=== PATIENT | female | born 1985 | race Caucasian/White ===

== ENCOUNTER 2019-12-31 07:40 | Inpatient (IN) ==
[2019-12-31] MEDS ORDERED: OXYTOCIN 30 UNITS/500 ML BAG IV PRN ×2 (07:47)
[2019-12-31] MEDS ORDERED: PENICILLIN G POTASSIUM 6 MU in DEXTROSE 5% 250 ML IV ONE (08:00)
[2019-12-31 08:21] LABS: Hemoglobin 12.1 g/dL (12.0-16.0); Mean Corpuscular Hemoglobin 27.4 pg (25-34); Mean Corpuscular Volume 81.4 fL (80-100); Mean Platelet Volume 11.4 fL (7.4-10.4); Platelet Count 172 K/uL (130-400); RDW Coefficient of Variation 14.3 % (11.5-14.5); RDW Standard Deviation 42.5 fL (36.4-46.3); Red Blood Count 4.42 M/uL (4.2-5.4); White Blood Count 11.84 K/uL (4.8-10.8)
[2019-12-31 08:40] LABS: Mean Corpuscular Hgb Conc 33.6 g/dL (32-36)
--- NOTE | 2019-12-31 08:56 | History & Physical Report ---
Date of Service December 31, 2019 40 weeks gestational age here for induction is gestational diabetic on insulin first baby uncomplicated aside from the gestational diabetes Assessment & Plan (1) Insulin controlled gestational diabetes mellitus (GDM) during : Induction at 40 weeks gestational age cervix is 1 to 2 cm 90% effaced start Pitocin blood sugars every 1 hour COVID negative Admission and Anticipated Discharge Date Admission Date: December 31, 2019 History of Present Illness Primary Care Provider: Jody Cheung MD Allergies Allergy/AdvReac Type Severity Reaction Status Date / Time No Known Drug Allergies Allergy none Verified 12/31/19 07:57 Home Medications Home Medications Medication Instructions Recorded Confirmed Type prenat.vits,richard,pdv-[id number] 1 tab PO DAILY 04/08/19 12/31/19 History acetone (urine) test #50 ea 10/18/19 12/30/19 Rx blood sugar diagnostic #150 ea 10/18/19 12/30/19 Rx blood-glucose meter #1 ea 10/18/19 12/30/19 Rx lancets 33 gauge #150 ea 10/18/19 12/30/19 Rx insulin NPH isoph U-100 human 100 8 units SQ QPM #72 ml 11/29/19 12/31/19 Rx unit/mL subcutaneous suspension insulin syringe-needle U-100 0.5 #90 ea 11/29/19 12/30/19 Rx mL 31 gauge x 5/16" breast pump #1 ea 12/04/19 12/30/19 Rx Patient History Social History (Updated 06/12/19 @ 13:11 by Janiya Nelson) Smoking Status: Never smoker Second Hand Exposure: No; Hx Alcohol Use: No Hx Substance Use: No Preferred Language: Syriac Communication Ability: Effective 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 Beliefs That Will Affect Care: None marital status: marital status details: Sahil Hernandez (27) [phone] Current Living Situation: Spouse Current Living Situation Comment: lives with spouse, 2 dogs current occupational status: employed 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 Other Information That Helps Us Care for You: No Feels Safe at Home: Yes Safety Concerns: Feels Safe At This Time Physical Exam Constitutional: WD/WN, vitals as above Respiratory: normal respiratory effort, lungs clear to auscultation Cardiovascular: RRR, no murmur, no edema Genitourinary: Manual OB Exam: + cervical dilation 2 cm, + cervical effacement 90% and + station -1 Results & Data ([facility]) Vital Signs (Past 12 Hours) Vital Signs Temp Pulse Resp BP 12/31/19 07:50 81 123/86 12/31/19 07:49 98.2 F 16 Coding Level of Care Code None Diagnoses Insulin controlled gestational diabetes mellitus (GDM) during O24.414
--- NOTE | 2019-12-31 08:57 | History & Physical Report ---
Date of Service December 31, 2019 Assessment & Plan (1) Elective induction of labor planned: Nia is a 34 y/o female at 39-7/7 WGA and an NICA 12/31/19 by LMP here for IOL in setting of insulin-dependent GDM throughout this . She is GBS+. - Continue with IOL with Pitocin protocol - GBS+ - will give intrapartum PCN - Insulin-dependent GDM: Glucose checks every hour (2) GBS (group B Streptococcus carrier), +RV culture, currently : As above Present on Admission?: Yes (3) Insulin controlled gestational diabetes mellitus (GDM) during : As above Present on Admission?: Yes History of Present Illness Primary Care Provider: Jody Cheung MD Nia is a 34 y/o female at 39-7/7 WGA and an NICA 12/31/19 by LMP here for IOL in setting of insulin-dependent GDM throughout this . She is GBS+. No other complications throughout . No contractions; good movement; no fluid loss; no bloody show External FHT and external uterine monitors used; Category I tracing; +FHT variability. Had regular appointments with OB. Labs: (06/19/2019) Blood type: O+ Antibody screen: neg H.1 (today) Hct: 36.0 (today) WBC: 11.84 (today) Plt: 172 (today) Rubella: NR VDRL/RPR: NR Gonorrhea: neg Chlamydia: neg HIV: neg GBS: Positive Allergies Allergy/AdvReac Type Severity Reaction Status Date / Time No Known Drug Allergies Allergy none Verified 12/31/19 07:57 Home Medications Home Medications Medication Instructions Recorded Confirmed Type prenat.vits,richard,[id number] 1 tab PO DAILY 04/08/19 12/31/19 History acetone (urine) test #50 ea 10/18/19 12/30/19 Rx blood sugar diagnostic #150 10/18/19 12/30/19 Rx blood-glucose meter #1 10/18/19 12/30/19 Rx lancets 33 gauge #150 ea 10/18/19 12/30/19 Rx insulin NPH isoph U-100 human 100 8 units SQ QPM #72 ml 11/29/19 12/31/19 Rx unit/mL subcutaneous suspension insulin syringe-needle U-100 0.5 #90 ea 11/29/19 12/30/19 Rx mL 31 gauge x 5/16" breast pump #1 ea 12/04/19 12/30/19 Rx Patient History Social History (Updated 06/12/19 @ 13:11 by Janiya Nelson) Smoking Status: Never smoker Second Hand Exposure: No; Hx Alcohol Use: No Hx Substance Use: No Preferred Language: [place] Communication Ability: Effective 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 Beliefs That Will Affect Care: None marital status: marital status details: Sahil Hernandez (27) [phone] Current Living Situation: Spouse Current Living Situation Comment: lives with spouse, 2 dogs current occupational status: employed 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 No acute distress. Cardiac: Regular rate and rhythm, no murmurs/rubs/gallops. Respiratory: Clear to auscultation bilaterally a/p, no wheezes/rales/rhonchi. No increased work of breathing. Symmetrical chest rise. No respiratory distress. Abdomen: Gravid uterus, nontender to palpation Pelvic: Dilation 2cm; Effacement 90%; Station -[address] Smith Lower Extremities: No lower extremity edema or swelling. No deep calf pain. Sanya's negative bilaterally Results & Data Vital Signs (Past 12 Hours) Vital Signs Temp Pulse Resp BP 12/31/19 07:50 81 123/86 12/31/19 07:49 36.8 C 16 Resident Activity Tracking Resident Involvement: Resident Care Provided Care Provided: OB Delivery
[2019-12-31] MEDS: LACTATED RINGER'S 1,000 ML IV PRN ×3 (08:59→18:39)
--- NOTE | 2019-12-31 12:28 | Labor Progress Brief Note ---
Date of Service December 31, 2019 AROM for clear fluid. Cat 1 Assessment & Plan Admission and Anticipated Discharge Date Admission Date: December 31, 2019 Results & Data ([facility]) Vital Signs (Past 12 Hours) Vital Signs Temp Pulse Resp BP 12/31/19 12:20 98.4 F 12/31/19 12:03 75 126/88 12/31/19 11:02 78 132/96 12/31/19 11:01 98.2 F 12/31/19 10:03 69 124/89 12/31/19 10:02 71 124/88 12/31/19 09:02 80 133/92 12/31/19 07:50 81 123/86 12/31/19 07:49 98.2 F 16 Coding Level of Care Code None
[2019-12-31] MEDS: PENICILLIN G POTASSIUM 3 MU in DEXTROSE 5% 100 ML IV PRN ×3 (12:59→21:03)
[2019-12-31] MEDS ORDERED: fentaNYL citrate 100 MCG/2 ML VIAL ONE (14:08)
[2019-12-31] MEDS ORDERED: ePHEDrine sulfate 50 MG/ML AMP ONE (14:08)
[2019-12-31] MEDS ORDERED: BUPIVACAINE 0.25% 30 ML VIAL ONE (14:08)
--- NOTE | 2019-12-31 14:08 | Anesthesiology Consultation ---
Date of Service December 31, 2019 Assessment & Plan (1) Encounter for pre-operative examination: Chart Review Chart Review: Acceptable Risk for Surgery and Patient NOT seen in Pre Admission Testing Consults Requested none ASA ASA3 Proposed Anesthesia Anesthesia Type: Labor Epidural Risk / Benefits Reviewed With: PT / POA / Parent / Guardian, Accepts Plan and Informed Consent Obtained History Height/Weight Height: 5 ft 7 in Weight: 86.183 kg Allergies Allergy/AdvReac Type Severity Reaction Status Date / Time No Known Drug Allergies Allergy none Verified 12/31/19 07:57 Medications Home Medications Medication Instructions Recorded Confirmed Last Taken prenat.vits,richard,ier-htbx-oiygi 1 tab PO DAILY 04/08/19 12/31/19 12/31/19 06:00 acetone (urine) test #50 ea 10/18/19 12/30/19 Unknown blood sugar diagnostic #150 ea 10/18/19 12/30/19 Unknown blood-glucose meter #1 ea 10/18/19 12/30/19 Unknown lancets 33 gauge #150 ea 10/18/19 12/30/19 Unknown insulin NPH isoph U-100 human 100 8 units SQ QPM #72 ml 11/29/19 12/31/19 21:00 unit/mL subcutaneous suspension insulin syringe-needle U-100 0.5 #90 ea 11/29/19 12/30/19 Unknown mL 31 gauge x 5/16" breast pump #1 12/04/19 12/30/19 Unknown Active Medications Generic Name Dose Route Start Last Admin Trade Name Freq PRN Reason Stop Dose Admin Lactated Ringer's 1,000 mls @ 125 mls/hr 12/31/19 07:47 12/31/19 08:59 Lr IV 01/02/20 07:46 125 mls/hr .Q8H PRN Administration L&D Protocol Protocol Penicillin G Potassium 3 mu/ 106 mls @ 100 mls/hr 12/31/19 07:47 12/31/19 12:59 Dextrose IV 01/10/20 07:46 100 mls/hr Q4H PRN Administration Give until delivery Oxytocin 30 units in 500 mls @ 11 mls/hr 12/31/19 07:47 12/31/19 12:06 Pitocin IV 01/02/20 07:46 0.66 units/hr .Q24H PRN 11 mls/hr Labor Induction/Augmentation Titration Protocol 0.66 UNITS/HR NPO Date Last Intake of Fluids: 12/31/19 Time Last Intake of Fluids: 14:00 Date Last Intake of Solids: 12/31/19 Time Last Intake of Solids: 05:45 Past Medical History Medical History Chronic sinusitis with recurrent bronchitis GERD (gastroesophageal reflux disease) Hx of varicella as a child Hyperlipidemia no meds Hypertrophy of both inferior nasal turbinates (Resolved) Umbilical hernia history of Exercise / Class Metabolic Activity II 4-5 Yardwork/Stairs/Walk up hill Past Family History Family History Grandfather (Paternal) FHx: deafness or hearing loss Stroke Hypertension Father Family history of diabetes mellitus Hypertension Crohn's disease Uncle Family history of diabetes mellitus Mother Hypertension Fibroids Grandfather (Maternal) Lung cancer Hypertension Grandmother (Maternal) Hypertension Grandmother (Paternal) Breast cancer Hypertension Past Surgical History Surgical History History of endoscopic sinus surgery History of tooth extraction wisdom teeth removed Past Anesthesia History No Hx of Anesthesia Complications History of PONV No Hx of PONV Social History Smoking Status: Never smoker Hx Alcohol Use: No Alcohol type: beer, wine and hard liquor alcohol intake frequency: a few times a week Hx Substance Use: No substance use type: does not use Review of Systems Negative for chest pain or shortness of breath. Patient denies history of abnormal bleeding or bleeding disorder. Patient denies active use of anticoagulants other than low dose aspirin. Patient denies numbness, tingling or weakness in lower extremities. Physical Exam Vital Signs Last Vital Signs Temp 36.9 C 12/31/19 13:03 Pulse 74 12/31/19 13:04 Resp 16 12/31/19 07:49 BP 133/95 12/31/19 13:04 Constitutional not obese (Gravid uterus) ENMT Mouth: no TMJ abnormality and oral opening not small Thyromental Distance: > or= 3.5 Finger Breadths Mallampati Class: II Neck normal visual inspection; neck extension not limited Respiratory normal respiratory effort, lungs clear to auscultation normal respiratory effort Auscultation: lungs clear to auscultation bilaterally Cardiovascular Rate/Rhythm: regular rate and regular rhythm Heart Sounds: no murmur Neurologic moves all extremities Motor/Sensory: no sensory deficit Psychiatric Orientation: alert and oriented x 3 Testing Laboratory Results 12/31/19 08:10 12/31/19 12/31/19 12/31/19 13:02 12:04 11:02 POC Glucose 75 111 H 73 12/31/19 12/31/19 10:04 09:05 POC Glucose 104 H 76
[2019-12-31] MEDS ORDERED: fentaNYL 2MCG/ML ROPIV 1.25MG/ML 100 ML BAG EPI ONE ×2 (14:09→20:52)
--- NOTE | 2019-12-31 20:16 | Labor Progress Brief Note ---
Date of Service December 31, 2019 She has now been pushing for 2 hours she has an epidural patient is making good progress up to +2 station she will continue to push bladder will be drained we did discuss the option of vacuum if maternal fatigue starts to become an issue patient seems to understand Assessment & Plan Admission and Anticipated Discharge Date Admission Date: December 31, 2019 Results & Data ([facility]) Vital Signs (Past 12 Hours) Vital Signs Temp Pulse Resp BP Pulse Ox 12/31/19 20:14 79 122/74 100 12/31/19 20:09 74 99 12/31/19 20:04 80 99 12/31/19 20:00 75 18 122/62 12/31/19 19:59 83 100 12/31/19 19:56 80 90 12/31/19 19:54 74 99 12/31/19 19:50 101 H 93 12/31/19 19:49 83 98 12/31/19 19:45 77 80 L 12/31/19 19:44 74 120/72 98 12/31/19 19:39 90 95 12/31/19 19:34 109 H 99 12/31/19 19:33 78 91 12/31/19 19:31 78 123/69 12/31/19 19:29 68 99 12/31/19 19:26 91 H 91 12/31/19 19:24 80 100 12/31/19 19:19 71 100 12/31/19 19:14 72 100 12/31/19 19:11 72 91 12/31/19 19:10 97.5 F L 18 12/31/19 19:09 69 100 12/31/19 19:04 65 100 12/31/19 19:03 90 90 12/31/19 19:00 20 12/31/19 18:59 68 132/63 100 12/31/19 18:56 69 92 12/31/19 18:54 94 H 95 12/31/19 18:49 88 97 12/31/19 18:47 75 91 12/31/19 18:44 89 99 12/31/19 18:42 81 92 12/31/19 18:39 74 100 12/31/19 18:34 67 100 12/31/19 18:30 88 20 113/68 12/31/19 18:29 98 H 100 12/31/19 18:24 84 100 12/31/19 18:23 88 132/63 12/31/19 18:21 67 126/89 12/31/19 18:19 80 100 12/31/19 18:15 76 149/74 H 12/31/19 18:14 70 100 12/31/19 18:10 68 141/60 H 12/31/19 18:09 68 100 12/31/19 18:06 81 87 L 12/31/19 18:04 68 117/70 100 12/31/19 18:00 18 12/31/19 17:59 63 100 12/31/19 17:58 65 120/72 12/31/19 17:54 66 100 12/31/19 17:52 62 126/74 12/31/19 17:49 63 119/72 100 12/31/19 17:44 64 100 12/31/19 17:43 65 116/70 12/31/19 17:39 63 100 12/31/19 17:37 63 116/69 12/31/19 17:34 65 118/70 100 12/31/19 17:32 68 91 12/31/19 17:30 18 12/31/19 17:29 62 100 12/31/19 17:27 66 117/71 12/31/19 17:24 65 100 12/31/19 17:23 63 114/70 12/31/19 17:19 68 100 12/31/19 17:18 63 109/65 12/31/19 17:14 72 100 12/31/19 17:13 67 113/64 12/31/19 17:09 66 109/59 L 100 12/31/19 17:04 61 100 12/31/19 17:03 58 L 104/58 L 12/31/19 17:00 98.2 F 20 12/31/19 16:59 67 98 12/31/19 16:55 75 175/67 H 12/31/19 16:54 82 85 L 12/31/19 16:49 69 99 12/31/19 16:48 68 128/74 12/31/19 16:47 84 90 12/31/19 16:45 66 20 120/76 12/31/19 16:44 67 100 12/31/19 16:39 67 100 12/31/19 16:37 71 124/66 12/31/19 16:34 66 100 07/28/20 16:33 79 114/74 12/31/19 16:30 18 12/31/19 16:29 70 100 12/31/19 16:28 69 116/73 12/31/19 16:24 65 118/70 100 12/31/19 16:19 65 100 12/31/19 16:18 64 110/66 12/31/19 16:14 66 100 12/31/19 16:13 65 112/66 12/31/19 16:09 76 109/63 100 12/31/19 16:04 66 112/68 100 12/31/19 16:00 16 12/31/19 15:59 67 100 12/31/19 15:58 64 115/65 12/31/19 15:54 67 100 12/31/19 15:53 65 112/67 12/31/19 15:49 75 114/69 100 12/31/19 15:45 18 12/31/19 15:44 69 100 12/31/19 15:43 69 125/79 12/31/19 15:39 65 100 12/31/19 15:38 63 112/73 12/31/19 15:34 63 100 12/31/19 15:32 67 118/72 12/31/19 15:30 16 12/31/19 15:29 72 120/70 100 12/31/19 15:24 63 100 12/31/19 15:23 66 119/71 12/31/19 15:19 69 100 12/31/19 15:17 66 113/74 12/31/19 15:15 62 18 117/72 12/31/19 15:14 67 99 12/31/19 15:13 68 117/75 12/31/19 15:11 65 122/78 12/31/19 15:09 66 121/78 100 12/31/19 15:07 68 126/81 12/31/19 15:05 80 120/75 12/31/19 15:04 70 100 12/31/19 15:03 63 120/76 12/31/19 15:01 66 118/73 12/31/19 15:00 16 12/31/19 14:59 68 124/78 100 12/31/19 14:57 72 117/76 12/31/19 14:56 98.1 F 12/31/19 14:55 69 118/75 12/31/19 14:54 72 100 12/31/19 14:53 70 126/77 12/31/19 14:51 71 121/74 12/31/19 14:50 16 12/31/19 14:49 76 121/76 100 12/31/19 14:47 73 119/73 12/31/19 14:45 71 121/77 12/31/19 14:44 77 100 12/31/19 14:38 85 100 12/31/19 14:33 82 99 12/31/19 14:28 85 99 12/31/19 14:23 75 100 12/31/19 14:18 72 99 12/31/19 14:03 73 136/94 12/31/19 13:04 74 133/95 12/31/19 13:03 98.4 F 12/31/19 12:20 98.4 F 12/31/19 12:03 75 126/88 12/31/19 11:02 78 132/96 12/31/19 11:01 98.2 F 12/31/19 10:03 69 124/89 12/31/19 10:02 71 124/88 12/31/19 09:02 80 133/92 Coding Level of Care Code None
[2019-12-31] MEDS ORDERED: ONDANSETRON INJ 2 MG/ML 2 ML VIAL IV PRN ×2 (20:54→23:44)
[2019-12-31] MEDS ORDERED: ePHEDrine sulfate 50 MG/ML AMP IV PRN ×2 (20:54→23:44)
[2019-12-31] MEDS ORDERED: NALOXONE HCL 1 MG in SODIUM CHLORIDE 0.9% 1000ML 1,000 ML IV PRN ×2 (20:54→23:44)
[2019-12-31] MEDS ORDERED: DiphenhydrAMINE HCL 50 MG/ML VIAL IV PRN ×2 (20:54→23:44)
[2019-12-31] MEDS ORDERED: fentaNYL 2MCG/ML ROPIV 1.25MG/ML 100 ML BAG EPI PRN (20:54)
[2019-12-31] MEDS ORDERED: NALOXONE HCL 0.4 MG/1 ML VIAL/CARP IV PRN ×2 (20:54→23:44)
[2019-12-31] MEDS ORDERED: LACTATED RINGER'S 1,000 ML IV SCH (21:15)
--- NOTE | 2019-12-31 21:18 | Labor Progress Brief Note ---
Date of Service December 31, 2019 Patient had pushed for 3 hours and was starting to get to the maternal exhaustion I offered the vacuum and she agreed. Station was at +2 however she was making minimal crawl progress pushing. Discussed risks of the vacuum including O hematoma. Bladder was drained with a straight catheter rubber Betadine applied vacuum was applied for 3 contractions and 3 pop offs I was unable to get the baby to descend any further despite excellent pushing strong contractions and my best effort after this I stopped with the vacuum and expres sed my recommendation for section patient agrees discussed risks of section. The patient was counseled to the nature of the procedure including alternatives such as labor. Risks were discussed including bleeding infection injury to bowel bladder ureter vessels and even baby. Deep Vein thrombosis, pulmonary embolus discussed. Breakdown of incision reviewed. Deep vein thrombosis pulmonary embolus hernia and failure of the incision to heal were discussed Patient verbalized understanding of this and was given ample time to ask questions Discussed increased risks of infection with prolonged labor Assessment & Plan Admission and Anticipated Discharge Date Admission Date: December 31, 2019 Results & Data ([facility]) Vital Signs (Past 12 Hours) Vital Signs Temp Pulse Resp BP Pulse Ox 12/31/19 21:15 86 149/65 H 12/31/19 21:14 93 H 99 12/31/19 21:09 114 H 97 12/31/19 21:07 119 H 90 12/31/19 21:04 82 98 12/31/19 20:59 107 H 97 12/31/19 20:58 83 129/71 12/31/19 20:54 83 99 12/31/19 20:49 98 H 99 12/31/19 20:45 18 12/31/19 20:44 83 122/69 98 12/31/19 20:39 82 99 12/31/19 20:34 96 H 99 12/31/19 20:30 73 18 119/63 12/31/19 20:29 83 119/59 L 99 12/31/19 20:24 85 99 12/31/19 20:19 92 H 100 12/31/19 20:15 18 12/31/19 20:14 79 122/74 100 12/31/19 20:09 74 99 12/31/19 20:04 80 99 12/31/19 20:00 75 18 122/62 12/31/19 19:59 83 100 12/31/19 19:56 80 90 12/31/19 19:54 74 99 12/31/19 19:50 101 H 93 12/31/19 19:49 83 98 12/31/19 19:45 77 80 L 12/31/19 19:44 74 120/72 98 12/31/19 19:39 90 95 12/31/19 19:34 109 H 99 12/31/19 19:33 78 91 12/31/19 19:31 78 123/69 12/31/19 19:30 20 12/31/19 19:29 68 99 12/31/19 19:26 91 H 91 12/31/19 19:24 80 100 12/31/19 19:19 71 100 12/31/19 19:14 72 100 12/31/19 19:11 72 91 12/31/19 19:10 97.5 F L 18 12/31/19 19:09 69 100 12/31/19 19:04 65 100 12/31/19 19:03 90 90 12/31/19 19:00 20 12/31/19 18:59 68 132/63 100 12/31/19 18:56 69 92 12/31/19 18:54 94 H 95 12/31/19 18:49 88 97 12/31/19 18:47 75 91 12/31/19 18:44 89 99 12/31/19 18:42 81 92 12/31/19 18:39 74 100 12/31/19 18:34 67 100 12/31/19 18:30 88 20 113/68 12/31/19 18:29 98 H 100 12/31/19 18:24 84 100 12/31/19 18:23 88 132/63 12/31/19 18:21 67 126/89 12/31/19 18:19 80 100 12/31/19 18:15 76 149/74 H 12/31/19 18:14 70 100 12/31/19 18:10 68 141/60 H 12/31/19 18:09 68 100 12/31/19 18:06 81 87 L 12/31/19 18:04 68 117/70 100 12/31/19 18:00 18 12/31/19 17:59 63 100 12/31/19 17:58 65 120/72 12/31/19 17:54 66 100 12/31/19 17:52 62 126/74 12/31/19 17:49 63 119/72 100 12/31/19 17:44 64 100 12/31/19 17:43 65 116/70 12/31/19 17:39 63 100 12/31/19 17:37 63 116/69 12/31/19 17:34 65 118/70 100 12/31/19 17:32 68 91 12/31/19 17:30 18 12/31/19 17:29 62 100 12/31/19 17:27 66 117/71 12/31/19 17:24 65 100 12/31/19 17:23 63 114/70 12/31/19 17:19 68 100 12/31/19 17:18 63 109/65 12/31/19 17:14 72 100 12/31/19 17:13 67 113/64 12/31/19 17:09 66 109/59 L 100 12/31/19 17:04 61 100 12/31/19 17:03 58 L 104/58 L 12/31/19 17:00 98.2 F 20 12/31/19 16:59 67 98 12/31/19 16:55 75 175/67 H 12/31/19 16:54 82 85 L 12/31/19 16:49 69 99 12/31/19 16:48 68 128/74 12/31/19 16:47 84 90 12/31/19 16:45 66 20 120/76 12/31/19 16:44 67 100 12/31/19 16:39 67 100 12/31/19 16:37 71 124/66 12/31/19 16:34 66 100 12/31/19 16:33 79 114/74 12/31/19 16:30 18 12/31/19 16:29 70 100 12/31/19 16:28 69 116/73 12/31/19 16:24 65 118/70 100 12/31/19 16:19 65 100 12/31/19 16:18 64 110/66 12/31/19 16:14 66 100 12/31/19 16:13 65 112/66 12/31/19 16:09 76 109/63 100 12/31/19 16:04 66 112/68 100 12/31/19 16:00 16 12/31/19 15:59 67 100 12/31/19 15:58 64 115/65 12/31/19 15:54 67 100 12/31/19 15:53 65 112/67 12/31/19 15:49 75 114/69 100 12/31/19 15:45 18 12/31/19 15:44 69 100 12/31/19 15:43 69 125/79 12/31/19 15:39 65 100 12/31/19 15:38 63 112/73 12/31/19 15:34 63 100 12/31/19 15:32 67 118/72 12/31/19 15:30 16 12/31/19 15:29 72 120/70 100 12/31/19 15:24 63 100 12/31/19 15:23 66 119/71 12/31/19 15:19 69 100 12/31/19 15:17 66 113/74 12/31/19 15:15 62 18 117/72 12/31/19 15:14 67 99 12/31/19 15:13 68 117/75 12/31/19 15:11 65 122/78 12/31/19 15:09 66 121/78 100 12/31/19 15:07 68 126/81 12/31/19 15:05 80 120/75 12/31/19 15:04 70 100 12/31/19 15:03 63 120/76 12/31/19 15:01 66 118/73 12/31/19 15:00 16 12/31/19 14:59 68 124/78 100 12/31/19 14:57 72 117/76 12/31/19 14:56 98.1 F 12/31/19 14:55 69 118/75 12/31/19 14:54 72 100 12/31/19 14:53 70 126/77 12/31/19 14:51 71 121/74 12/31/19 14:50 16 12/31/19 14:49 76 121/76 100 12/31/19 14:47 73 119/73 12/31/19 14:45 71 121/77 12/31/19 14:44 77 100 12/31/19 14:38 85 100 12/31/19 14:33 82 99 12/31/19 14:28 85 99 12/31/19 14:23 75 100 12/31/19 14:18 72 99 12/31/19 14:03 73 136/94 12/31/19 13:04 74 133/95 12/31/19 13:03 98.4 F 12/31/19 12:20 98.4 F 12/31/19 12:03 75 126/88 12/31/19 11:02 78 132/96 12/31/19 11:01 98.2 F 12/31/19 10:03 69 124/89 12/31/19 10:02 71 124/88 Coding Level of Care Code None
[2019-12-31] MEDS ORDERED: CITRIC ACID/SODIUM CITRATE 15 ML UDC ONE (21:21)
[2019-12-31] MEDS ORDERED: LIDOCAINE/EPINEPHRINE 2% 1:200,000 20 ML SDV ONE (21:22)
[2019-12-31] MEDS ORDERED: OXYTOCIN 10 UNITS/ML VIAL ONE (21:22)
[2019-12-31] MEDS ORDERED: CEFAZOLIN 2000MG 2,000 MG/15 ML SYR IV SCH (21:30)
[2019-12-31] MEDS ORDERED: CITRIC ACID/SODIUM CITRATE 15 ML UDC PO SCH (21:30)
[2019-12-31] MEDS ORDERED: PHENYLEPHRINE 100MCG/ML 5ML SYR ONE (22:00)
[2019-12-31] MEDS ORDERED: ONDANSETRON INJ 2 MG/ML 2 ML VIAL ONE (22:00)
[2019-12-31] MEDS ORDERED: MoRPHine SULFATE PF 1 MG/ML 10 ML AMP/VIAL ONE (22:08)
[2019-12-31] MEDS ORDERED: ePHEDrine sulfate 50 MG/ML SYR ONE (22:14)
[2019-12-31] MEDS ORDERED: PROMETHAZINE HCL INJ 25 MG/ML 1 ML VIAL ONE (22:21)
[2019-12-31] MEDS ORDERED: SODIUM CHLORIDE 0.9% INJ 10 ML VIAL ONE (22:21)
[2019-12-31 22:38] LABS: Base Excess Cord Venous Blood -2.4 mEq/L (-7.7-1.9); Cord Venous Blood HCO3 23 mmol/L (18.4-26.8); Cord Venous Blood PCO2 44 mmHg (30.4-57.2); Cord Venous Blood PO2 26 mmHg (14.1-43.3); Cord Venous Blood pH 7.34 (7.20-7.44)
[2019-12-31 22:40] LABS: Base Excess Cord Arterial Bld -2.7 mEq/L (-9-1.8); CO2 Cord Arterial Blood 53 mmHg (39.1-73.5); HCO3 Cord Arterial Blood 25 mmol/L (19.7-28.5); PO2 Cord Arterial Blood 28 mmHg (4.1-31.7); pH Cord Arterial Blood 7.28 (7.1-7.38)
[2019-12-31 22:41] LABS: O2 Saturation Cord Venous Bld < 60.0 % (<68); Oxygen Sat Cord Arterial Blood < 60.0 % (<60)
--- NOTE | 2019-12-31 22:50 | Operative Report ---
PG Post Operative Report Pre & Post Diagnosis Operation Date: 12/31/19 22:00 Pre-Op Diagnosis: Primary Section for failed trail of vacuum Post-Op Diagnosis: Same I identified the patient and participated in the time-out.: Yes Procedure Operation Date: 12/31/19 22:00 Actual Procedures p Section in LD for LFC at 2206 (Bilateral) - Alexandra Smith MD, FACOG Surgeon Alexandra Smith MD, FACOG Garment Cutter RN Estimated Blood Loss 700 Findings Consistent with Post-Op Diagnosis Specimens Cord gases and cord blood Description of Procedure Regional anesthetic was given by anesthesia patient had a Tomlin catheter inserted by nursing patient was prepped and draped in supine position with a leftward tilt preoperative antibiotics were given timeout performed Pickups with teeth were used to test the skin site and it was found adequate for incision scalpel used to make a Pfannenstiel incision cutting down through subcutaneous fat through the fascia fascia was then dissected laterally with the curved Garcia's fascia was released superiorly and inferiorly from the rectus muscles with the curved Garcia scissors, rectus muscle split peritoneal cavity entered in a superior location. Opening enlarged to allow exposure bladder retractor placed Metzenbaums used to dissect away the bladder flap low segment transverse incision made on the uterus with scalpel entry was done bluntly with the cylinder press operator helper's finger hysterotomy incision extended with the cylinder press operator helper's finger in the usual fashion baby was delivered then by flexion of the head and pressure from the training and development assistant on the abdomen. Note the baby's head was elevated gently from the pelvis and then delivered and then mouth and then nares were suctioned baby was then delivered fully without difficulty without excessive force live vigorous infant cord clamped and cut cord gases obtained cord blood obtained placenta removed manually within ensured all placenta removed with a moist lap sponge uterus exteriorized IV Pitocin had been started by anesthesia and uterine tone improved. The uterus was closed in 2 layers first layer and 0 Monocryl running locked second layer 0 Monocryl nonlocked after generous irrigation and suction of the cul-de-sac and bladder flap regions hemostasis was excellent uterus was placed back in the peritoneal cavity and hemostasis was excellent rectus muscles were inspected and found to be dry fascia closed with 0 Vicryl subcutaneous fat closed with 3-0 Vicryl prior to this subcutaneous fat was irrigated skin closed with 4-0 subcuticular Monocryl incision Steri-Stripped urine was clear at the end of the procedure There were no significant extensions and the adnexa were bilaterally normal I attest to the content of the Intraoperative Record and any orders documented therein. Any exceptions are noted below.
[2019-12-31] MEDS ORDERED: HYDROCORTISONE ACETATE 25 MG SUPP PR PRN (23:15)
[2019-12-31] MEDS ORDERED: SUPERCREAM 0.870% 15 GM JAR EXT PRN (23:15)
[2019-12-31] MEDS ORDERED: SENNA 8.6 MG TAB PO PRN (23:15)
[2019-12-31] MEDS ORDERED: MEPERIDINE HCL 50 MG/ML CARP IV PRN (23:15)
[2019-12-31] MEDS ORDERED: MAGNESIUM HYDROXIDE SUSP 30 ML UDC PO PRN (23:15)
[2019-12-31] MEDS ORDERED: BENZOCAINE 20% AER SPR 82.5 GM CAN EXT PRN (23:15)
[2019-12-31] MEDS ORDERED: DIPHTHERIA/TETANUS/PERTUSSIS 0.5 ML SYR/VIAL IM ONE (23:15)
[2019-12-31] MEDS: OXYTOCIN 20 UNITS in LACTATED RINGER'S 1,000 ML IV SCH (23:30)
[2019-12-31] MEDS ORDERED: ACETAMINOPHEN 1000 MG/100 ML IV IV PRN (23:43)
[2019-12-31] MEDS ORDERED: LACTATED RINGER'S 500 ML IV PRN (23:44)
[2019-12-31] MEDS ORDERED: HYDROmorphone INJ 0.5 MG/0.5 ML SYR IV PRN (23:44)
[2019-12-31] MEDS ORDERED: NALOXONE HCL 0.08 MG in SYRINGE 1.8 ML IV PRN (23:44)
[2019-12-31] MEDS ORDERED: KETOROLAC 30 MG/ML VIAL IV PRN (23:44)
[2019-12-31] MEDS ORDERED: PROMETHAZINE HCL 25 MG in SODIUM CHLORIDE 0.9% 50 ML IV PRN (23:44)
[2019-12-31] MEDS ORDERED: MoRPHine SULFATE PF 1 MG/ML 10 ML AMP/VIAL EPI ONE (23:44)
[2019-12-31] MEDS ORDERED: NO NARCOTICS OR SEDATIVES SCH (23:45)
[2019-12-31] MEDS ORDERED: SODIUM CHLORIDE 0.9% 1000ML 1,000 ML IV SCH (23:45)
[2019-12-31] MEDS ORDERED: DC INTRASPINAL MORPHINE SCH (23:45)
--- NOTE | 2019-12-31 23:50 | Anesthesia Procedure Note ---
Date of Service December 31, 2019 Anesthesia Post Epidural Note Vital Signs Vital Signs: Temp Pulse Resp BP Pulse Ox 37.9 C H 90 18 96/53 L 98 12/31/19 21:18 12/31/19 23:47 12/31/19 21:39 12/31/19 23:41 12/31/19 23:47 Pain Intensity Bilateral Abdomen: Pain Intensity: 2 Notes Mental Status: alert / awake / arousable and participated in evaluation Nausea / Vomiting: adequately controlled Pain: adequately controlled Airway Patency, RR, SpO2: stable & adequate BP & HR: stable & adequate Hydration State: stable & adequate Neuraxial Anesthesia: was administered and sensory block is resolving Anesthetic Complications: no major complications apparent and Pt Satisfied with anesthetic care Epidural: Removed without complications and With tip intact Notes: Epidural site clean, dry and intact. No signs of edema, erythema or bruising at insertion site. Pt instructed to request anesthesia if she has residual lower extremity numbness or if she develops lower extremity pain or weakness, back pain or headache.
--- NOTE | 2019-12-31 23:52 | Anesthesiology Progress Note ---
Date of Service December 31, 2019 Anesthesia Post Procedure Vital Signs Vital Signs: Temp Pulse Resp BP Pulse Ox 12/31/19 23:51 88 98/54 L 12/31/19 23:47 90 98 12/31/19 23:41 83 96/53 L 12/31/19 23:40 90 100 12/31/19 23:35 86 100 12/31/19 23:34 90 92/51 L 12/31/19 23:30 101 H 100 12/31/19 23:25 87 100 12/31/19 23:20 98 H 100 12/31/19 23:17 75 97/52 L 12/31/19 23:15 76 100 12/31/19 23:10 74 99 12/31/19 23:07 73 96/56 L 12/31/19 23:05 78 98 12/31/19 23:00 79 100 12/31/19 22:56 82 98/55 L 12/31/19 22:55 75 99 12/31/19 21:39 18 12/31/19 21:38 97 H 128/78 12/31/19 21:33 105 H 123/77 12/31/19 21:19 87 98 12/31/19 21:18 37.9 C H 18 12/31/19 21:15 86 18 149/65 H 12/31/19 21:14 93 H 99 12/31/19 21:09 114 H 97 12/31/19 21:07 119 H 90 12/31/19 21:04 82 98 12/31/19 20:59 107 H 97 12/31/19 20:58 83 129/71 12/31/19 20:54 83 99 12/31/19 20:49 98 H 99 12/31/19 20:45 18 12/31/19 20:44 83 122/69 98 12/31/19 20:39 82 99 12/31/19 20:34 96 H 99 12/31/19 20:30 73 18 119/63 12/31/19 20:29 83 119/59 L 99 12/31/19 20:24 85 99 12/31/19 20:19 92 H 100 12/31/19 20:15 18 12/31/19 20:14 79 122/74 100 12/31/19 20:09 74 99 12/31/19 20:04 80 99 12/31/19 20:00 75 18 122/62 12/31/19 19:59 83 100 12/31/19 19:56 80 90 12/31/19 19:54 74 99 12/31/19 19:50 101 H 93 12/31/19 19:49 83 98 12/31/19 19:45 77 80 L 12/31/19 19:44 74 120/72 98 12/31/19 19:39 90 95 12/31/19 19:34 109 H 99 12/31/19 19:33 78 91 12/31/19 19:31 78 123/69 12/31/19 19:30 20 12/31/19 19:29 68 99 12/31/19 19:26 91 H 91 12/31/19 19:24 80 100 12/31/19 19:19 71 100 12/31/19 19:14 72 100 12/31/19 19:11 72 91 12/31/19 19:10 36.4 C L 18 12/31/19 19:09 69 100 12/31/19 19:04 65 100 12/31/19 19:03 90 90 12/31/19 19:00 20 12/31/19 18:59 68 132/63 100 12/31/19 18:56 69 92 12/31/19 18:54 94 H 95 12/31/19 18:49 88 97 12/31/19 18:47 75 91 12/31/19 18:44 89 99 12/31/19 18:42 81 92 12/31/19 18:39 74 100 12/31/19 18:34 67 100 12/31/19 18:30 88 20 113/68 12/31/19 18:29 98 H 100 12/31/19 18:24 84 100 12/31/19 18:23 88 132/63 12/31/19 18:21 67 126/89 12/31/19 18:19 80 100 12/31/19 18:15 76 149/74 H 12/31/19 18:14 70 100 12/31/19 18:10 68 141/60 H 12/31/19 18:09 68 100 12/31/19 18:06 81 87 L 12/31/19 18:04 68 117/70 100 12/31/19 18:00 18 12/31/19 17:59 63 100 12/31/19 17:58 65 120/72 12/31/19 17:54 66 100 12/31/19 17:52 62 126/74 12/31/19 17:49 63 119/72 100 12/31/19 17:44 64 100 12/31/19 17:43 65 116/70 12/31/19 17:39 63 100 12/31/19 17:37 63 116/69 12/31/19 17:34 65 118/70 100 12/31/19 17:32 68 91 12/31/19 17:30 18 12/31/19 17:29 62 100 12/31/19 17:27 66 117/71 12/31/19 17:24 65 100 12/31/19 17:23 63 114/70 12/31/19 17:19 68 100 12/31/19 17:18 63 109/65 12/31/19 17:14 72 100 12/31/19 17:13 67 113/64 12/31/19 17:09 66 109/59 L 100 12/31/19 17:04 61 100 12/31/19 17:03 58 L 104/58 L 12/31/19 17:00 36.8 C 20 12/31/19 16:59 67 98 12/31/19 16:55 75 175/67 H 12/31/19 16:54 82 85 L 12/31/19 16:49 69 99 12/31/19 16:48 68 128/74 12/31/19 16:47 84 90 12/31/19 16:45 66 20 120/76 12/31/19 16:44 67 100 12/31/19 16:39 67 100 12/31/19 16:37 71 124/66 12/31/19 16:34 66 100 12/31/19 16:33 79 114/74 12/31/19 16:30 18 12/31/19 16:29 70 100 12/31/19 16:28 69 116/73 12/31/19 16:24 65 118/70 100 12/31/19 16:19 65 100 12/31/19 16:18 64 110/66 12/31/19 16:14 66 100 12/31/19 16:13 65 112/66 12/31/19 16:09 76 109/63 100 12/31/19 16:04 66 112/68 100 12/31/19 16:00 16 12/31/19 15:59 67 100 12/31/19 15:58 64 115/65 12/31/19 15:54 67 100 12/31/19 15:53 65 112/67 12/31/19 15:49 75 114/69 100 12/31/19 15:45 18 12/31/19 15:44 69 100 12/31/19 15:43 69 125/79 12/31/19 15:39 65 100 12/31/19 15:38 63 112/73 12/31/19 15:34 63 100 12/31/19 15:32 67 118/72 12/31/19 15:30 16 12/31/19 15:29 72 120/70 100 12/31/19 15:24 63 100 12/31/19 15:23 66 119/71 12/31/19 15:19 69 100 12/31/19 15:17 66 113/74 12/31/19 15:15 62 18 117/72 12/31/19 15:14 67 99 12/31/19 15:13 68 117/75 12/31/19 15:11 65 122/78 12/31/19 15:09 66 121/78 100 12/31/19 15:07 68 126/81 12/31/19 15:05 80 120/75 12/31/19 15:04 70 100 12/31/19 15:03 63 120/76 12/31/19 15:01 66 118/73 12/31/19 15:00 16 12/31/19 14:59 68 124/78 100 12/31/19 14:57 72 117/76 12/31/19 14:56 36.7 C 12/31/19 14:55 69 118/75 12/31/19 14:54 72 100 12/31/19 14:53 70 126/77 12/31/19 14:51 71 121/74 12/31/19 14:50 16 12/31/19 14:49 76 121/76 100 12/31/19 14:47 73 119/73 12/31/19 14:45 71 121/77 12/31/19 14:44 77 100 12/31/19 14:38 85 100 12/31/19 14:33 82 99 12/31/19 14:28 85 99 12/31/19 14:23 75 100 12/31/19 14:18 72 99 12/31/19 14:03 73 136/94 12/31/19 13:04 74 133/95 12/31/19 13:03 36.9 C 12/31/19 12:20 36.9 C 12/31/19 12:03 75 126/88 12/31/19 11:02 78 132/96 12/31/19 11:01 36.8 C 12/31/19 10:03 69 124/89 12/31/19 10:02 71 124/88 12/31/19 09:02 80 133/92 12/31/19 07:50 81 123/86 12/31/19 07:49 36.8 C 16 Pain Intensity Bilateral Abdomen: Pain Intensity: 2 Transfer of Care Handoff Completed per policy Notes Mental Status: alert / awake / arousable and participated in evaluation Nausea / Vomiting: adequately controlled Pain: adequately controlled Airway Patency, RR, SpO2: stable & adequate BP & HR: stable & adequate Hydration State: stable & adequate Neuraxial Anesthesia: was administered and sensory block is resolving Anesthetic Complications: no major complications apparent and Pt Satisfied with anesthetic care
--- NOTE | 2020-01-01 06:42 | Obstetrical Progress Note ---
Date of Service <Tiburcio Perrin MD - Last Filed: 01/01/20 07:27> January 01, 2020 Assessment & Plan <Tiburcio Perrin MD - Last Filed: 01/01/20 07:27> (1) S/P section: - Feels well this AM s/p late yesterday evening following mater nal exhaustion and non-progressing active Stage I of labor - Pain controlled with percocet and ibuprofen 600mg Q4H PRN. - Routine post-op care -- d/c copeland today, progressive OOB, ambulation, and diet progression as tolerated Subjective <Tiburcio Perrin MD - Last Filed: 01/01/20 07:27> Nia is a 34 y/o female who is POD #1 following late yesterday evening in setting of maternal exhaustion and non-progressing active Stage I of labor, with subsequent delivery at 40-0/7 weeks. She reports feeling well overall this morning. Endorses abdominal cramping managed on analgesics. Copeland currently in place, draining clear urine. No ambulation or PO intake yet. Not yet passing gas and no bowel movements. Currently breast feeding. Review of Systems Denies fever, chills, sweats Denies shortness of breath, difficulty breathing, chest pain, palpitations, chest pressure. Denies breast pain. Denies dysuria. Denies headache or changes in vision. Physical Exam <Tiburcio Perrin MD - Last Filed: 01/01/20 07:27> General: Alert, oriented. No acute distress. Cardiac: Regular rate and rhythm, no murmurs/rubs/gallops. Respiratory: Clear to auscultation bilaterally a/p, no wheezes/rales/rhonchi. No increased work of breathing. Symmetrical chest rise. No respiratory distress. Abdomen: Soft, nontender, nondistended. Bowel sounds present. Uterus: Surgical scar clean, dry, and healing well. Lower Extremities: No lower extremity edema or swelling. No deep calf pain. Sanya's negative bilaterally. Results & Data <Tiburcio Perrin MD - Last Filed: 01/01/20 07:27> Vital Signs (Past 12 Hours) Vital Signs Temp Pulse Pulse Resp BP BP Pulse Ox 01/01/20 06:05 17 100 01/01/20 05:15 17 100 01/01/20 04:20 37.2 C 88 17 116/69 100 01/01/20 02:50 18 99 01/01/20 01:45 37.4 C 85 20 124/76 99 01/01/20 01:01 92 H 115/68 01/01/20 01:00 18 01/01/20 00:57 83 100 01/01/20 00:52 82 100 01/01/20 00:51 83 106/55 L 01/01/20 00:47 84 99 01/01/20 00:42 69 100 01/01/20 00:41 71 116/71 01/01/20 00:37 72 100 01/01/20 00:32 72 100 01/01/20 00:31 68 113/69 01/01/20 00:30 16 01/01/20 00:27 69 100 01/01/20 00:22 70 100 01/01/20 00:21 71 110/68 01/01/20 00:17 78 100 01/01/20 00:12 71 100 01/01/20 00:11 70 108/64 01/01/20 00:07 70 100 01/01/20 00:02 74 100 01/01/20 00:01 75 102/57 L 01/01/20 00:00 36.9 C 83 18 106/55 L 12/31/19 23:57 80 98 12/31/19 23:52 88 98 12/31/19 23:51 88 98/54 L 12/31/19 23:50 18 12/31/19 23:47 90 98 12/31/19 23:41 83 96/53 L 12/31/19 23:40 90 16 100 12/31/19 23:35 86 100 12/31/19 23:34 90 92/51 L 12/31/19 23:30 101 H 18 100 12/31/19 23:25 87 100 12/31/19 23:20 98 H 16 100 12/31/19 23:17 75 97/52 L 12/31/19 23:15 76 100 12/31/19 23:10 36.9 C 74 16 99 12/31/19 23:07 73 96/56 L 12/31/19 23:05 78 98 12/31/19 23:00 37.1 C 79 16 100 12/31/19 22:56 82 98/55 L 12/31/19 22:55 75 99 12/31/19 21:39 18 12/31/19 21:38 97 H 128/78 12/31/19 21:33 105 H 123/77 12/31/19 21:19 87 98 12/31/19 21:18 37.9 C H 18 12/31/19 21:15 86 18 149/65 H 12/31/19 21:14 93 H 99 12/31/19 21:09 114 H 97 12/31/19 21:07 119 H 90 12/31/19 21:04 82 98 12/31/19 20:59 107 H 97 12/31/19 20:58 83 129/71 12/31/19 20:54 83 99 12/31/19 20:49 98 H 99 12/31/19 20:45 18 12/31/19 20:44 83 122/69 98 12/31/19 20:39 82 99 12/31/19 20:34 96 H 99 12/31/19 20:30 73 18 119/63 12/31/19 20:29 83 119/59 L 99 12/31/19 20:24 85 99 12/31/19 20:19 92 H 100 12/31/19 20:15 18 12/31/19 20:14 79 122/74 100 12/31/19 20:09 74 99 12/31/19 20:04 80 99 12/31/19 20:00 75 18 122/62 12/31/19 19:59 83 100 12/31/19 19:56 80 90 12/31/19 19:54 74 99 12/31/19 19:50 101 H 93 12/31/19 19:49 83 98 12/31/19 19:45 77 80 L 12/31/19 19:44 74 120/72 98 12/31/19 19:39 90 95 12/31/19 19:34 109 H 99 12/31/19 19:33 78 91 12/31/19 19:31 78 123/69 12/31/19 19:30 20 12/31/19 19:29 68 99 12/31/19 19:26 91 H 91 12/31/19 19:24 80 100 12/31/19 19:19 71 100 07/28/20 19:14 72 100 12/31/19 19:11 72 91 12/31/19 19:10 36.4 C L 18 12/31/19 19:09 69 100 12/31/19 19:04 65 100 12/31/19 19:03 90 90 12/31/19 19:00 20 12/31/19 18:59 68 132/63 100 12/31/19 18:56 69 92 12/31/19 18:54 94 H 95 12/31/19 18:49 88 97 12/31/19 18:47 75 91 12/31/19 18:44 89 99 12/31/19 18:42 81 92 12/31/19 18:39 74 100 <Alexandra Smith MD, FACOG - Last Filed: 01/01/20 07:29> Co-Signing Physician Notes Resident Physician Supervision Note: I was present with Dr. Perrin during the history and exam. I discussed the case with the resident and agree with the findings and plan as documented in the note. Any exceptions or clarifications are listed here: [None] Documented By: Alexandra Smith MD, FACOG Resident Activity Tracking <Tiburcio Perrin MD - Last Filed: 01/01/20 07:27> Resident Involvement: Resident Care Provided Care Provided: Adult Hospital Medicine and OB Delivery
[2020-01-01 07:10] LABS: Basophils # (auto) 0.01 K/uL (0-0.2); Basophils % (auto) 0.1 %; Eosinophils # (auto) 0.01 K/uL (0-0.5); Eosinophils % (auto) 0.1 %; Hematocrit (blood only) 27.8 % (37-47); Hemoglobin 9.4 g/dL (12.0-16.0); Immature Granulocytes # (auto) 0.06 K/uL (0.00-0.02); Immature Granulocytes % (auto) 0.3 %; Lymphocytes # (auto) 1.69 K/uL (1.2-3.4); Lymphocytes % (auto) 9.2 %; Mean Corpuscular Hemoglobin 27.7 pg (25-34); Mean Corpuscular Hgb Conc 33.8 g/dL (32-36); Mean Platelet Volume 11.9 fL (7.4-10.4); Monocytes # (auto) 1.62 K/uL (0.11-0.59); Monocytes % (auto) 8.8 %; Neutrophils # (auto) 14.98 K/uL (1.4-6.5); Neutrophils % (auto) 81.5 %; Platelet Count 172 K/uL (130-400); RDW Coefficient of Variation 14.6 % (11.5-14.5); RDW Standard Deviation 43.6 fL (36.4-46.3); Red Blood Count 3.39 M/uL (4.2-5.4); White Blood Count 18.37 K/uL (4.8-10.8)
[2020-01-01] MEDS: OXYTOCIN 20 UNITS in LACTATED RINGER'S 1,000 ML IV SCH (07:25)
[2020-01-01] MEDS ORDERED: NON-FORMULARY MEDICATION (Prenat.Vits,Cal,Min-Iron-Folic 1 TAB) PO SCH (09:00)
[2020-01-01] MEDS: SIMETHICONE 80 MG CHEW PO SCH ×4 (09:17→20:52)
[2020-01-01] MEDS: DOCUSATE SODIUM 100 MG CAP PO SCH ×2 (09:18→20:52)
[2020-01-01] MEDS: FERROUS SULFATE 325 MG TAB PO SCH (09:18)
[2020-01-01] MEDS: PRENATAL VITAMIN 1 TAB PO SCH (09:18)
[2020-01-01] MEDS ORDERED: LACTATED RINGER'S 1,000 ML IV SCH (15:30)
[2020-01-01] MEDS ORDERED: OXYTOCIN 20 UNITS in LACTATED RINGER'S 1,000 ML IV SCH (16:30)
[2020-01-01] MEDS ORDERED: KETOROLAC 30 MG/ML VIAL IV PRN (17:45)
[2020-01-01] MEDS ORDERED: ONDANSETRON INJ 2 MG/ML 2 ML VIAL IV PRN (17:45)
[2020-01-01] MEDS ORDERED: PROMETHAZINE HCL 25 MG in SODIUM CHLORIDE 0.9% 50 ML IV PRN (17:45)
[2020-01-01] MEDS ORDERED: DiphenhydrAMINE HCL 50 MG/ML VIAL IV PRN (17:45)
[2020-01-01] MEDS ORDERED: bisacodyL 5 MG TABEC PO SCH (20:00)
[2020-01-02] MEDS: IBUPROFEN 600 MG TAB PO PRN ×3 (00:44→13:45)
[2020-01-02] MEDS: OXYCODONE/ACETAMINOPHEN 5mg/325mg TAB PO PRN ×3 (00:44→13:45)
--- NOTE | 2020-01-02 06:18 | Obstetrical Progress Note ---
Date of Service <Tiburcio Perrin MD - Last Filed: 01/02/20 06:19> January 02, 2020 Assessment & Plan <Tiburcio Perrin MD - Last Filed: 01/02/20 06:19> (1) S/P section: - s/p in setting of maternal exhaustion and non-progressing act della Stage I of labor - Feels well overall this morning - Pain controlled with percocet and ibuprofen 600mg Q4H PRN. - Routine post-op care -- continue OOB, ambulation, and diet progression as tolerated Day #:: 2 Subjective <Tiburcio Perrin MD - Last Filed: 01/02/20 06:19> Nia is a 34 y/o female who is POD #2 following in setting of maternal exhaustion and non-progressing active Stage I of labor, with subsequent delivery at 40-0/7 weeks. She reports feeling well overall this morning. Endorses abdominal cramping managed on analgesics. Voiding without difficulty. Eating without difficulty - no n/v. Ambulating well. Passing gas, no BM yet. Currently breast feeding. Review of Systems Denies fever, chills, sweats Denies shortness of breath, difficulty breathing, chest pain, palpitations, chest pressure. Denies breast pain. Denies dysuria. Denies headache or changes in vision. Physical Exam <Tiburcio Perrin MD - Last Filed: 01/02/20 06:19> General: Alert, oriented. No acute distress. Cardiac: Regular rate and rhythm, no murmurs/rubs/gallops. Respiratory: Clear to auscultation bilaterally a/p, no wheezes/rales/rhonchi. No increased work of breathing. Symmetrical chest rise. No respiratory distress. Abdomen: Soft, nontender, nondistended. Bowel sounds present. Uterus: Uterine fundus firm, palpable 1 cm below umbilicus. Surgical scar clean and healing well. Lower Extremities: No lower extremity edema or swelling. No deep calf pain. Sanya's negative bilaterally. Results & Data <Tiburcio Perrin MD - Last Filed: 01/02/20 06:19> Vital Signs (Past 12 Hours) Vital Signs Temp Pulse Resp BP Pulse Ox 01/02/20 00:25 36.6 C 87 18 113/80 01/01/20 19:03 36.9 C 94 H 16 121/75 98 <Deepthi Leary MD, FACOG - Last Filed: 01/02/20 07:49> Co-Signing Physician Notes Resident Physician Supervision Note: I interviewed and examined the patient. Discussed with Dr. Perrin and agree with findings and plan as documented in the note. Any exceptions or clarifications are listed here: She has been having epistaxis from right nares. she was diagnosed with a right nasal polyp by Dr. Haro. will consult ENT for follow up & treatment. Documented By: Deepthi Leary MD, FACOG
[2020-01-02 06:41] LABS: Hematocrit (blood only) 24.4 % (37-47); Hemoglobin 8.2 g/dL (12.0-16.0)
[2020-01-02] MEDS: SIMETHICONE 80 MG CHEW PO SCH ×4 (08:13→20:49)
[2020-01-02] MEDS: FERROUS SULFATE 325 MG TAB PO SCH (08:13)
[2020-01-02] MEDS: DOCUSATE SODIUM 100 MG CAP PO SCH ×2 (08:13→20:49)
[2020-01-02] MEDS: PRENATAL VITAMIN 1 TAB PO SCH (08:13)
[2020-01-02] MEDS ORDERED: bisacodyL 10 MG SUPP PR PRN (22:46)
[2020-01-03] MEDS: IBUPROFEN 600 MG TAB PO PRN ×2 (01:20→12:15)
[2020-01-03] MEDS: OXYCODONE/ACETAMINOPHEN 5mg/325mg TAB PO PRN ×2 (01:20→12:15)
--- NOTE | 2020-01-03 06:42 | Obstetrical Progress Note ---
Date of Service <Tiburcio Perrin MD - Last Filed: 01/03/20 06:43> January 03, 2020 Assessment & Plan <Tiburcio Perrin MD - Last Filed: 01/03/20 06:43> (1) S/P section: - s/p in setting of maternal exhaustion and non-progressing act della Stage I of labor; doing well now POD-3. - Feels well overall this morning. Some clotting last night that has since resolved. - Pain controlled with ibuprofen 600mg Q4H PRN. - Routine post-op care -- continue OOB, ambulation, and diet progression as tolerated - Anticipate d/c today pending peds approval Day #:: 3 Subjective <Tiburcio Perrin MD - Last Filed: 01/03/20 06:43> Nia is a 34 y/o female who is POD #3 following delivery at 40 weeks for maternal exhaustion and non-progressing labor. She reports feeling well overall this morning. Minimal abdominal cramping well managed on analgesics. Voiding without difficulty. Tolerating meals overnight and able to ambulate some. Endorses passing gas but not yet bowel movements. Had some small blood clots last night that have since resolved; otherwise, persistent lochia with some improvement this morning. Breast feeding this AM with formula supplementation. Review of Systems Denies fever, chills, sweats Denies shortness of breath, difficulty breathing, chest pain, palpitations, chest pressure. Denies breast pain. Denies dysuria. Denies headache or changes in vision. Physical Exam <Tiburcio Perrin MD - Last Filed: 01/03/20 06:43> General: Alert, oriented. No acute distress. Cardiac: Regular rate and rhythm, no murmurs/rubs/gallops. Respiratory: Clear to auscultation bilaterally a/p, no wheezes/rales/rhonchi. No increased work of breathing. Symmetrical chest rise. No respiratory distress. Abdomen: Soft, nontender, nondistended. Bowel sounds present. Uterus: Uterine fundus firm, palpable 2 cm below umbilicus. Surgical scar clean and healing well. Lower Extremities: No lower extremity edema or swelling. No deep calf pain. Sanya's negative bilaterally. Results & Data <Tiburcio Perrin MD - Last Filed: 01/03/20 06:43> Vital Signs (Past 12 Hours) Vital Signs Temp Pulse Resp BP Pulse Ox 01/03/20 00:50 36.6 C 91 H 16 137/87 97 <Brenda Sylvester MD, FACOG - Last Filed: 01/03/20 07:25> Co-Signing Physician Notes Resident Physician Supervision Note: I interviewed and examined the patient. Discussed with Dr. Perrin and agree with findings and plan as documented in the note. Any exceptions or clarifications are listed here: Doing well. Plan d/c, instructions given. Documented By: Brenda Sylvester MD, FACOG Resident Activity Tracking <Tiburcio Perrin MD - Last Filed: 01/03/20 06:43> Resident Involvement: Resident Care Provided Care Provided: Adult Hospital Medicine and OB Delivery
[2020-01-03] MEDS: PRENATAL VITAMIN 1 TAB PO SCH (08:43)
[2020-01-03] MEDS: SIMETHICONE 80 MG CHEW PO SCH (08:43)
[2020-01-03] MEDS: DOCUSATE SODIUM 100 MG CAP PO SCH (08:44)
[2020-01-03] MEDS: FERROUS SULFATE 325 MG TAB PO SCH (08:44)
--- NOTE | 2020-01-06 17:31 | Discharge Summary ---
Date of Service January 06, 2020 C/S for fTP Admission HPI Per Admitting Provider Nia is a 34 y/o female at 39-7/7 WGA and an NICA 12/31/19 by LMP here for IOL in setting of insulin-dependent GDM throughout this . She is GBS+. No other complications throughout . No contractions; good movement; no fluid loss; no bloody show External FHT and external uterine monitors used; Category I tracing; +FHT variability. Had regular appointments with OB. Labs: (06/19/2019) Blood type: O+ Antibody screen: neg H.1 (today) Hct: 36.0 (today) WBC: 11.84 (today) Plt: 172 (today) Rubella: NR VDRL/RPR: NR Gonorrhea: neg Chlamydia: neg HIV: neg GBS: Positive Admission Exam (Per Admitting) Constitutional WD/WN, vitals as above Respiratory normal respiratory effort, lungs clear to auscultation Cardiovascular RRR, no murmur, no edema Discharge Data Consultations 01/02/20 07:39 Consult Otolaryngology (Head and Neck) Routine Procedures Performed Operation Date: 12/31/19 22:00 Actual Procedures p Section in LD for [facility] at 2206 (Bilateral) - Alexandra Smith MD, FACOG Hospital Course (1) S/P section: Postoperative from section patient meets discharge criteria as she is ambulating well tolerating an oral diet has minimal bleeding and no extremity pain. Discharge instructions were reviewed and prescriptions were sent to her pharmacy of choice patient advised to call with any concerns and follow-up in the office discussed Supervising Physician Co-Signing Physician Notes Resident Physician Supervision Note: I interviewed and examined the patient. Discussed with Dr. Perrin and agree with findings and plan as documented in the note. Any exceptions or clarifications are listed here: Doing well. Plan d/c, instructions given. Documented By: Brenda Sylvester MD, FACOG Coding Level of Care Code None Diagnoses S/P section Z98.891
== END 2020-01-03 14:00 | disposition home or self-care (01) | DRG 788 ==
LOC: 4S1 07:40 → 4S2 01-01 01:10

== ENCOUNTER 2021-11-27 09:38 | Inpatient (IN) ==
[2021-11-27] MEDS ORDERED: LACTATED RINGER'S 1,000 ML IV SCH ×2 (11:00→14:00)
--- NOTE | 2021-11-27 11:00 | Anesthesiology Consultation ---
Date of Service November 27, 2021 Assessment & Plan Chart Review Chart Review: Acceptable Risk for Surgery and Patient NOT seen in Pre Admission Testing Consults Requested none ASA [id number] Proposed Anesthesia Anesthesia Type: Spinal History Height/Weight Height: 5 ft 7 in Weight: 93.44 kg Allergies Allergy/AdvReac Type Severity Reaction Status Date / Time No Known Drug Allergies Allergy none Verified 11/27/21 09:57 Medications Home Medications Medication Instructions Recorded Confirmed Last Taken prenat.vits,richard,qta-gjug-zhrct 1 tab PO QAM 04/08/19 11/27/21 11/26/21 12:00 acetone (urine) test (Ketone Urine #50 ea 12/01/20 11/26/21 Unknown Test) blood-glucose meter (OneTouch #1 ea 12/01/20 11/26/21 Unknown Verio Flex meter) lancets 33 gauge (OneTouch Delica #150 ea 12/01/20 11/26/21 Unknown Plus Lancet) pen needle, diabetic 32 gauge x #400 ea 09/22/21 11/26/21 Unknown 32" (BD Ultra-Fine Mary Ann Pen Needle) blood sugar diagnostic (OneTouch #400 ea 11/02/21 11/26/21 Unknown Verio test strips) insulin lispro 100 unit/mL 0 unit UD 11/13/21 11/27/21 11/26/21 19:30 subcutaneous pen (Humalog KwikPen (U-100) Insulin) levothyroxine 100 mcg tablet 100 mcg PO DAILYBB 11/13/21 11/27/21 11/27/21 06:30 (Synthroid) aspirin 81 mg chewable tablet 1 tab PO DAILY 11/27/21 11/27/21 11/27/21 06:30 insulin degludec 100 unit/mL (3 22 unit SUBCUT DAILY 11/27/21 11/27/21 11/26/21 22:00 mL) subcutaneous pen (Tresiba FlexTouch U-100 insulin) Past Medical History Medical History Chronic sinusitis with recurrent bronchitis COVID-19 vaccine series completed Hx of varicella as a child Hyperlipidemia no meds Hypertrophy of both inferior nasal turbinates Nasal hemangioma Nausea and vomiting after administration of anesthetic agent Type 1 diabetes mellitus affecting , antepartum Dx in November 2020 Umbilical hernia Exercise / Class Metabolic Activity II 4-5 Yardwork/Stairs/Walk up hill Past Family History Family History Grandfather (Paternal) FHx: deafness or hearing loss Hypertension Stroke Father Family history of diabetes mellitus Crohn's disease Hypertension Uncle Family history of diabetes mellitus Mother Fibroids Hypertension Grandfather (Maternal) Lung cancer Hypertension Grandmother (Maternal) Hypertension Grandmother (Paternal) Breast cancer Hypertension Other No family history of adverse response to anesthesia Past Surgical History Surgical History History of section 12/31/2019 History of endoscopic sinus surgery History of tooth extraction wisdom teeth removed Past Anesthesia History No Hx of Anesthesia Complications and No Family Hx of Anesthesia Complications History of PONV No Hx of PONV and No Hx of Motion Sickness Social History Smoking Status: Never smoker Hx Alcohol Use: Yes Alcohol type: beer, wine and hard liquor alcohol intake frequency: other Hx Substance Use: No substance use type: does not use Physical Exam Vital Signs Last Vital Signs Temp 37.0 C 11/27/21 09:49 Pulse 84 11/27/21 09:51 Resp 18 11/27/21 09:49 BP 121/82 11/27/21 09:51
[2021-11-27] MEDS ORDERED: CITRIC ACID/SODIUM CITRATE 15 ML UDC ONE (11:14)
[2021-11-27] MEDS ORDERED: AZITHROMYCIN 500 MG in DEXTROSE 5% 250 ML IV SCH (11:15)
--- NOTE | 2021-11-27 11:15 | History & Physical Report ---
Date of Service November 27, 2021 Assessment & Plan (1) SROM (spontaneous rupture of membranes): (2) Type 1 diabetes mellitus affecting in third trimester, antepartum: (3) Hypothyroid in , antepartum: Plan: 36 y/o at 37w6d admitted w/ srom VSS Fetus cat 1 SROM - SROM confirmed with amnisure. Desires CS + BTL. Discussed indications, risks, benefits, alternatives with risks including infection, bleeding, injury to adjacent structures (bowel, bladder, ureters, blood vessels, nerves, baby), possible need for blood transfusion and/or life saving hysterectomy, VTE, risk of regret due to permanence of tubal portion of procedure, risk of inability to complete tubal, risk of tubal failure. Consent reviewed in detail w/ pt and signed after all questions answered to her satisfaction for CS + BTL. Anesthesia aware, plan for ancef/azithro GBS neg History of Present Illness Chief Complaint: Leaking of fluid Primary Care Provider: NO PCP 36 y/o at 37w6d who presents w/ c/o LOF and irreg ctx. Was seen for IVANIA yesterday, after the visit had increased discharge but noted increasing watery fluid beginning last evening that has continued into this morning. Denies recent intercourse. 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: G1 2019 primary CS for failed vacuum G2 current q28-30d cycles denies hx STIs 10/2018 neg cyto Allergies Allergy/AdvReac Type Severity Reaction Status Date / Time No Known Drug Allergies Allergy none Verified 11/27/21 09:57 Home Medications Medication Instructions Recorded Confirmed Type prenat.vits,richard,mfo-qcly-sewjt 1 tab PO QAM 04/08/19 11/27/21 History acetone (urine) test (Ketone Urine #50 ea 12/01/20 11/26/21 Rx Test) blood-glucose meter (OneTouch #1 ea 12/01/20 11/26/21 Rx Verio Flex meter) lancets 33 gauge (OneTouch Delica #150 ea 12/01/20 11/26/21 Rx Plus Lancet) pen needle, diabetic 32 gauge x #400 ea 09/22/21 11/26/21 Rx 5/32" (BD Ultra-Fine Mary Ann Pen Needle) blood sugar diagnostic (OneTouch #400 ea 11/02/21 11/26/21 Rx Verio test strips) insulin lispro 100 unit/mL 0 unit UD 11/13/21 11/27/21 History subcutaneous pen (Humalog KwikPen (U-100) Insulin) levothyroxine 100 mcg tablet 100 mcg PO DAILYBB 11/13/21 11/27/21 History (Synthroid) aspirin 81 mg chewable tablet 1 tab PO DAILY 11/27/21 11/27/21 History insulin degludec 100 unit/mL (3 22 unit SUBCUT DAILY 11/27/21 11/27/21 History mL) subcutaneous pen (Tresiba FlexTouch U-100 insulin) Patient History Medical History Chronic sinusitis with recurrent bronchitis COVID-19 vaccine series completed Hx of varicella as a child Hyperlipidemia no meds Hypertrophy of both inferior nasal turbinates Nasal hemangioma Nausea and vomiting after administration of anesthetic agent Type 1 diabetes mellitus affecting , antepartum Dx in November 2020 Umbilical hernia Surgical History History of section 12/31/2019 History of endoscopic sinus surgery History of tooth extraction wisdom teeth removed Family History Grandfather (Paternal) FHx: deafness or hearing loss Hypertension Stroke Father Family history of diabetes mellitus Crohn's disease Hypertension Uncle Family history of diabetes mellitus Mother Fibroids Hypertension Grandfather (Maternal) Lung cancer Hypertension Grandmother (Maternal) Hypertension Grandmother (Paternal) Breast cancer Hypertension Other No family history of adverse response to anesthesia Social History Smoking Status: Never smoker Second Hand Exposure: No; Hx Alcohol Use: Yes Alcohol type: beer, wine and hard liquor Hx Substance Use: No Preferred Language: Yakut Communication Ability: Effective Visual Impairment: No Limitations Hearing Ability: Normal Wholesale Account Manager Required: No Beliefs That Will Affect Care: None marital status: marital status details: Sahil Ciaranela (29) [phone] Current Living Situation: Spouse and Family Current Living Situation Comment: Lives with and young daughter. 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 After sweeping away no additional pooling noted. On slide however, there was an area that was ?ferning so amnisure obtained to confirm and this was positive Results & Data ([facility]) Vital Signs (Past 12 Hours) Vital Signs Temp Pulse Resp BP 11/27/21 09:51 84 121/82 11/27/21 09:49 98.6 F 18 Laboratory Results OB Labs: Blood Type O Positive 05/07/21 Antibody Screen NEGATIVE 05/07/21 Hemoglobin 13.1 g/dL (12.0-16.0) 09/21/21 Hematocrit 38.6 % (37-47) 09/21/21 Mean Corpuscular Volume 84.3 fL (80-100) 05/07/21 Platelet Count 291 K/uL (130-400) 05/07/21 Rubella IgG Antibody Immune (Immune) 05/07/21 Rapid Plasma Reagin Nonreactive (Nonreactive) 05/07/21 Hepatitis B Surface Antigen Neg (Neg) 05/07/21 HIV (1&2) Ab and P24 Ag, 4th Gener Neg (Neg) 05/07/21 Glucose 1 Hour 50 gm Load 162 mg/dl (70-130) H 10/08/19 Maternal Serum Alpha Fetoprotein 18.3 ng/mL 06/30/21 OB Optional Labs: Chlamydia trachomatis RNA NOT DETECTED (NOT DETECTED) 05/07/21 Neisseria gonorrhoeae RNA NOT DETECTED (NOT DETECTED) 05/07/21 Thyroid Stimulating Hormone (TSH) 0.144 uIu/ml (0.300-4.500) L 11/03/21 Alpha Fetoprotein Triple Screen SEE NOTE 06/30/21 Labs Reviewed: (-) CF/SMA 2019 Cfdna-negative--mln GBS neg Diagnostic Findings Fundal placenta, 11/19 EFW >98% Coding Level of Care Code None Diagnoses SROM (spontaneous rupture of membranes) Type 1 diabetes mellitus affecting in third trimester, antepartum O24.013 Hypothyroid in , antepartum O99.280; E03.9
[2021-11-27] MEDS ORDERED: fentaNYL citrate 100 MCG/2 ML VIAL ONE (11:19)
[2021-11-27] MEDS ORDERED: MoRPHine SULFATE PF 1 MG/ML 10 ML AMP/VIAL ONE (11:19)
[2021-11-27] MEDS ORDERED: SODIUM CHLORIDE 0.9% 250 ML IV PRN (11:23)
[2021-11-27 11:28] LABS: Hematocrit (blood only) 35.4 % (37-47); Mean Corpuscular Hemoglobin 28.8 pg (25-34); Mean Corpuscular Volume 84.9 fL (80-100); Mean Platelet Volume 12.7 fL (7.4-10.4); Platelet Count 159 K/uL (130-400); RDW Coefficient of Variation 13.4 % (11.5-14.5); Red Blood Count 4.17 M/uL (4.2-5.4); White Blood Count 10.59 K/uL (4.8-10.8)
[2021-11-27] MEDS ORDERED: ceFAZolin 2000MG 2,000 MG/15 ML SYR IV SCH (11:30)
[2021-11-27 11:34] LABS: Mean Corpuscular Hgb Conc 33.9 g/dL (32-36)
[2021-11-27] MEDS ORDERED: OXYTOCIN 10 UNITS/ML 10ML VIAL ONE (11:45)
[2021-11-27] MEDS ORDERED: CITRIC ACID/SODIUM CITRATE 15 ML UDC PO SCH (12:00)
[2021-11-27] MEDS ORDERED: ONDANSETRON INJ 2 MG/ML 2 ML VIAL ONE (12:01)
[2021-11-27] MEDS ORDERED: METHYLERGONOVINE MALEATE 0.2 MG/ML AMP ONE (12:30)
[2021-11-27] MEDS ORDERED: PROMETHAZINE HCL 25 MG in SODIUM CHLORIDE 0.9% 50 ML IV PRN (13:06)
[2021-11-27] MEDS ORDERED: LACTATED RINGER'S 500 ML IV PRN (13:06)
[2021-11-27] MEDS ORDERED: NALBUPHINE HCL INJ 10 MG/ML AMP IV PRN (13:06)
[2021-11-27] MEDS ORDERED: NALOXONE HCL 1 MG in SODIUM CHLORIDE 0.9% 1000ML 1,000 ML IV PRN (13:06)
[2021-11-27] MEDS ORDERED: MoRPHine SULFATE PF 1 MG/ML 10 ML AMP/VIAL INT SPINAL ONE (13:06)
[2021-11-27] MEDS ORDERED: ONDANSETRON INJ 2 MG/ML 2 ML VIAL IV PRN (13:06)
[2021-11-27] MEDS ORDERED: NALOXONE HCL 0.08 MG in SYRINGE 1.8 ML IV PRN (13:06)
[2021-11-27] MEDS ORDERED: KETOROLAC 30 MG/ML VIAL IV PRN (13:06)
[2021-11-27] MEDS ORDERED: diphenhydrAMINE 50 MG/ML VIAL IV PRN (13:06)
[2021-11-27] MEDS ORDERED: ePHEDrine sulfate 50 MG/ML AMP IV PRN (13:06)
[2021-11-27] MEDS ORDERED: NALOXONE HCL 0.4 MG/1 ML VIAL/CARP IV PRN (13:06)
[2021-11-27] MEDS ORDERED: DC INTRASPINAL MORPHINE SCH (13:15)
[2021-11-27] MEDS ORDERED: NO NARCOTICS OR SEDATIVES SCH (13:15)
[2021-11-27] MEDS ORDERED: SODIUM CHLORIDE 0.9% 1000ML 1,000 ML IV SCH (13:15)
--- NOTE | 2021-11-27 13:43 | Post Operative Brief Note ---
PG Immediate Post Op with CF Date of Surgery November 27, 2021 Pre & Post Diagnosis Operation Date: 11/27/21 11:30 Pre-Op Diagnosis: SROM at 37+ 6/7 weeks gestation. Type 1 DM. Hypothyroid. Polyhydramnios Post-Op Diagnosis: SROM at 37+ 6/7 weeks gestation. Type 1 DM. Hypothyroid. Polyhydramnios Delivered I identified the patient and participated in the time-out.: Yes Procedure Operation Date: 11/27/21 11:30 Actual Procedures p Repeat Low Transverse Section and Bilateral Tubal Ligation in LD for SROM at 37+6/7 weeks gestation, under services of Dr Foster.(Not Applicable) - Deborah Foster MD Surgeon Deborah Foster MD Coil Finisher MD Manuel Estimated Blood Loss 900 Findings Consistent with Post-Op Diagnosis Viable male infant with weight pending, APGARs of 8 and 9 at 1 and 5 minutes. Dense fascial adhesions. There were extremely dense abdominal wall adhesions to the uterus upon entry into the peritoneum. Bladder was noted to be low once adhesions were taken down. Left fallopian tube slightly adhesed to left ovary but wnl. Right tube and ovary wnl. Rocio applied to the uterus Fluids 2500cc crystalloid, 500cc clear urine by copeland catheter Specimens Specimen Description: A: Cord Blood B: Placenta C: Right portion of Fallopian Tube D: Left portion of Fallopian Tube Drains Copeland Catheter (Inserted prior to procedure and draining clear, yellow urine. Urine output monitored by anesthesia.) Anesthesia Type Spinal Complications none Disposition Accompanied Patient To Recovery: Yes Disposition: L&D
--- NOTE | 2021-11-27 13:44 | Operative Report ---
PG Post Operative Report Pre & Post Diagnosis Operation Date: 11/27/21 11:30 Pre-Op Diagnosis: SROM at 37+ 6/7 weeks gestation. Type 1 DM. Hypothyroid. Polyhydramnios Post-Op Diagnosis: SROM at 37+ 6/7 weeks gestation. Type 1 DM. Hypothyroid. Polyhydramnios Delivered Delivery at [address] Foster's services for a live baby boy. I identified the patient and participated in the time-out.: Yes Procedure Operation Date: 11/27/21 11:30 Actual Procedures p Repeat Low Transverse Section and Bilateral Tubal Ligation in LD for SROM at 37+6/7 weeks gestation, under services of Dr Foster.(Not Applicable) - Deborah Foster MD Surgeon Deborah Foster MD Filling Station Laborer MD Manuel Estimated Blood Loss 900 Findings Consistent with Post-Op Diagnosis Viable male infant with weight 11 lbs 3 oz, APGARs of 8 and 9 at 1 and 5 minutes. Dense fascial adhesions. There were extremely dense abdominal wall adhesions to the uterus upon entry into the peritoneum. Bladder was noted to be low once adhesions were taken down. Left fallopian tube slightly adhesed to left ovary but wnl. Right tube and ovary wnl. Methergine was given for uterine atony, post-operative cytotec was given for additional atony management. Rocio applied to the uterus. Fluids 2500cc crystalloid, 500cc clear urine by copeland catheter Specimens A: Cord Blood B: Placenta C: Right portion of Fallopian Tube D: Left portion of Fallopian Tube Drains 2500cc crystalloid, 500cc clear urine by copeland catheter Anesthesia Type Spinal Complications none Disposition Accompanied Patient To Recovery: Yes Disposition: L&D Indications 36 y/o at 37w6d presented with spontaneous rupture of membranes. She was planned for repeat and bilateral tubal ligation and desired to proceed with this procedure after consents were reviewed and signed. Description of Procedure The patient was taken to the operating room after consents were ensured. The patient was properly identified. Spinal anesthesia was obtained without difficulty. The patient was placed in a dorsal supine position with left lateral tilt, then prepped and draped in normal sterile fashion. Surgical time out was performed. Antibiotics were given for prophylaxis. Anesthesia was tested to ensure adequate surgical levels. Pfannenstiel skin incision was performed and carried down to the underlying fascia with a knife. The fascia was then nicked in the midline and extended la terally with picklaya and Garcia scissors. Superior portion of the fascia was grasped with Kochers x2 and elevated off the underlying rectus muscles using sharp dissection, dense adhesions noted. Inferior portion of the fascia was then grasped with Vadim clamps x2 and also elevated off the underlying muscles with blunt dissection. Midline was identified. The peritoneum was then entered sharply superiorly. A hand was inserted into abdomen at which point dense abdominal wall adhesions to the anterior uterus were palpated nearly the width of the uterus. The superior aspect of the fascia was able to be dissected further and peritoneum was gently stretched to more easily examine the adhesions. The adhesions were noted to be just a thick band without attachment to bladder and were taken down sharply. The Rosalino retractor was then place with care to avoid bowel and omentum. Once anterior abdominal wall adhesions were taken down, bladder flap was easily created. A low transverse uterine in cision was made in the uterus below the level of the adhesions and extended bluntly in a superior to inferior fashion. Clear fluid at the time of entry. head was grasped and elevated through the hysterotomy in an atraumatic fashion. The baby delivered in VINI position, no nuchal cord. Remainder of the body delivered without incident. Nose and mouth were bulb suctioned on the surgical field. The cord was double clamped and cut, baby was handed off to awaiting pediatrics staff. Cord segment and blood were obtained. Placenta was then expressed from the uterus. The uterus was exteriorized. Several passes were made inside the uterus to remove the remaining membranes. Attention was then turned to the hysterotomy, which was then closed with a running locked suture of 0 Vicryl on a CTX needle. An imbricating layer was then performed using 0-Monocryl. Uterine atony was noted and a dose of methergine was given. This did improve it. The area where prior wall adhesions was repaired in a running locked fashion using 0-Vicryl. Areas of bleeding across the adhesions were made hemostatic with [id number]-de-[id number] stitches. There was noted to be good hemostasis. Attention was turned to the tubal ligation portion of the procedure. The left fallopian tube was identified and followed out to the fimbriated end. A window was created in the avascular portion of the mesosalpinx and a portion of the left fallopian tube was excised using the modified carlos method and handed off for pathology. There was excellent hemostasis. The same procedure was performed on the contralateral side. The posterior cul-de-sac was then inspected and cleaned of clot and debris. The hysterotomy was again inspected and noted to be hemostatic. An abrasion was noted on the left aspect of the uterine serosa that was repaired using 0- monocryl and made hemostatic. Area of prior adhesions was hemostatic. Tubal sites hemostatic. The uterus was returned to the abdomen. The right and left pericolic gutters were cleaned of all clot and debris. The hysterotomy was again noted to be hemostatic. Tubal sites again hemostatic. Space of Retzius was noted to be hemostatic. Rocio was applied to the uterus. The fascia was then closed with a running suture of 0 Vicryl on a CT1 needle from each end and meeting together. Subcutaneous tissue was copiously irrigated and noted to be hemostatic. Subcutaneous tissue was re-approximated using 2-0 plain gut. The skin was then closed with a running suture of 3-0 Monocryl in a subcuticular fashion. At termination of the procedure, the fundal pressure was applied and a moderate amount of lochia was expressed. Pressure dressing was applied to the patient. She tolerated the procedure well. All sponge, needle, instrument counts were correct x 2. 800mcg cytotec was given HI following return to the pt's room. I attest to the content of the Intraoperative Record and any orders documented therein. Any exceptions are noted below. OB Procedure Charges 19629 [id number] Add on Tubal for C/S
[2021-11-27] MEDS ORDERED: BENZOCAINE 20% AER SPR 82.5 GM CAN EXT PRN (14:00)
[2021-11-27] MEDS ORDERED: HYDROCORTISONE ACETATE 25 MG SUPP PR PRN (14:00)
[2021-11-27] MEDS ORDERED: DIPHTHERIA/TETANUS/PERTUSSIS 0.5 ML SYR/VIAL IM ONE (14:00)
[2021-11-27] MEDS ORDERED: MAGNESIUM HYDROXIDE SUSP 30 ML UDC PO PRN (14:00)
[2021-11-27] MEDS ORDERED: PHARMACY GLYCEMIC MGMT CONSULT PRN (14:00)
[2021-11-27] MEDS ORDERED: SENNA 8.6 MG TAB PO PRN (14:00)
[2021-11-27] MEDS ORDERED: miSOPROStoL 200 MCG TAB PR ONE (14:21)
[2021-11-27] MEDS ORDERED: MEPERIDINE HCL 50 MG/ML CARP ONE (14:23)
[2021-11-27] MEDS ORDERED: MEPERIDINE HCL 25 MG/ML CARP/VIAL IV STA (14:28)
[2021-11-27] MEDS ORDERED: NON-FORMULARY MEDICATION (Insulin Lispro [Humalog Kwikpen Insulin] 100 unit/mL insulin pen SCH (14:30)
[2021-11-27] MEDS ORDERED: GLUCAGON FOR INJ 1 MG VIAL IM PRN (14:45)
[2021-11-27] MEDS ORDERED: CARBOHYDRATES FOR HYPOGLYCEMIA PO PRN (14:45)
[2021-11-27] MEDS ORDERED: DEXTROSE 50% 50 ML SYRINGE IV PRN (14:45)
[2021-11-27] MEDS ORDERED: GLUCOSE 10 TABS/TUBE PO PRN (14:45)
[2021-11-27] MEDS ORDERED: GLUCOSE 40% GEL 15 GM TUBE PO PRN (14:45)
--- NOTE | 2021-11-27 14:51 | Anesthesiology Progress Note ---
Date of Service November 27, 2021 Anesthesia Post Procedure Vital Signs Vital Signs: Temp Pulse Resp BP Pulse Ox 11/27/21 14:46 80 100 11/27/21 09:51 84 121/82 11/27/21 09:49 37.0 C 18 Transfer of Care Handoff Completed per policy Notes Mental Status: alert / awake / arousable Patient Amnestic to Procedure: Yes Nausea / Vomiting: adequately controlled Pain: adequately controlled Airway Patency, RR, SpO2: stable & adequate BP & HR: stable & adequate Hydration State: stable & adequate Neuraxial Anesthesia: was administered and sensory block is resolving Anesthetic Complications: no major complications apparent
[2021-11-27] MEDS: INSULIN ASPART PER UNIT SC SCH (18:39)
[2021-11-27] MEDS: OXYTOCIN 20 UNITS in LACTATED RINGER'S 1,000 ML IV SCH (18:40)
[2021-11-27] MEDS: SIMETHICONE 80 MG CHEW PO SCH ×2 (18:51→20:06)
[2021-11-27] MEDS ORDERED: INSULIN GLARGINE SOLOSTAR 100 UNITS/ML 3 ML PEN SC SCH (21:00)
[2021-11-27] MEDS ORDERED: NON-FORMULARY MEDICATION (Insulin Degludec [Tresiba Flextouch U-100] 100 unit/mL (3 mL) in SQ SCH (22:00)
[2021-11-27] MEDS: DOCUSATE SODIUM 100 MG CAP PO SCH (22:10)
[2021-11-27] MEDS: INSULIN DEGLUDEC 200 UNITS/ML PEN SQ SCH (22:47)
[2021-11-27] MEDS ORDERED: LACTATED RINGER'S 500 ML IV ONE (22:55)
[2021-11-28] MEDS: INSULIN ASPART PER UNIT SC SCH ×4 (00:30→21:39)
[2021-11-28] MEDS ORDERED: LACTATED RINGER'S 500 ML IV ONE (01:06)
[2021-11-28] MEDS: OXYTOCIN 20 UNITS in LACTATED RINGER'S 1,000 ML IV SCH (02:52)
[2021-11-28 05:34] LABS: Hematocrit (blood only) 21.9 % (37-47); Hemoglobin 7.4 g/dL (12.0-16.0); Mean Corpuscular Hemoglobin 28.4 pg (25-34); Mean Corpuscular Hgb Conc 33.8 g/dL (32-36); Mean Corpuscular Volume 83.9 fL (80-100); Mean Platelet Volume 11.4 fL (7.4-10.4); Platelet Count 157 K/uL (130-400); RDW Coefficient of Variation 13.6 % (11.5-14.5); RDW Standard Deviation 41.6 fL (36.4-46.3); Red Blood Count 2.61 M/uL (4.2-5.4); White Blood Count 12.02 K/uL (4.8-10.8)
[2021-11-28 05:35] LABS: Basophils # (auto) 0.01 K/uL (0-0.2); Basophils % (auto) 0.1 %; Immature Granulocytes # (auto) 0.02 K/uL (0.00-0.02); Immature Granulocytes % (auto) 0.2 %; Lymphocytes # (auto) 2.03 K/uL (1.2-3.4); Lymphocytes % (auto) 16.9 %; Monocytes % (auto) 9.2 %; Neutrophils # (auto) 8.86 K/uL (1.4-6.5); Neutrophils % (auto) 73.6 %; Polychromasia 1+; Toxic Granulation 1+
[2021-11-28] MEDS: LEVOTHYROXINE SODIUM 100 MCG TABLET PO SCH (06:17)
[2021-11-28] MEDS ORDERED: diphenhydrAMINE Capsule 25 MG CAP PO PRN (07:07)
[2021-11-28] MEDS ORDERED: PROMETHAZINE HCL 25 MG in SODIUM CHLORIDE 0.9% 50 ML IV PRN (07:07)
[2021-11-28] MEDS ORDERED: diphenhydrAMINE 50 MG/ML VIAL IV PRN (07:07)
[2021-11-28] MEDS ORDERED: ONDANSETRON INJ 2 MG/ML 2 ML VIAL IV PRN (07:07)
--- NOTE | 2021-11-28 07:30 | Obstetrical Progress Note ---
Date of Service November 28, 2021 Assessment & Plan (1) Encounter for care and examination after delivery: (2) Diabetes mellitus type 1: 36 yo POD 1 from rLTCS/BTL, doing well -UOP low overnight however had episodes of emesis with some hypoglycemia episodes. Hypoglycemia resolved, able to get some sleep. Fluid bolus improved urine output and now adequate and clear. Abd moderately distended but still soft, appropriately tender. Pt notes she got distended like this with first CS, started passing gas. H/H 7.4 which is not surprising based on delivery, iron ordered and will see how pt does - don't think transfusion indicated at this time but will continue to monitor -T1DM - pharmacy consult in place, pt notes she had plan to use half of home insulin w/ endocrine so using that for now. Baby was transferred for sugars but he is stable currently -O+/rubella immune/ -f/u 6 weeks for appt Subjective Ambulation: ambulating normally Voiding: copeland catheter in place Passing Gas:: Yes Diet Tolerance:: regular diet Lochia:: Small Feeding Type:: breast feeding Pain well managed with medication. Low UOP overnight but improved with bolus, cloudy for a period of time but clear urine now Review of Systems Denies fevers, chills, n/v, SOLIS, CP, SOB Physical Exam Constitutional WD/WN, vitals as above no acute distress Respiratory normal respiratory effort, lungs clear to auscultation Cardiovascular RRR, no murmur, no edema Gastrointestinal (Abdomen) Inspection/Auscultation: + abdomen distended (moderately), normal bowel sounds and + abdominal surgical scar (dressing c/d/i) Percussion/Palpation: + abdomen tender (appropriately) and abdomen soft fundus firm at umbilicus and NT Musculoskeletal BLE symmetric, nonerythematous, nontender Results & Data ([facility]) Vital Signs (Past 12 Hours) Vital Signs Temp Pulse Resp BP Pulse Ox 11/28/21 06:00 18 99 11/28/21 05:00 20 98 11/28/21 04:30 98.8 F 81 18 122/79 98 11/28/21 04:00 18 98 11/28/21 03:00 20 97 11/28/21 02:00 20 97 11/28/21 01:50 18 98 11/28/21 01:00 18 98 11/28/21 00:01 18 98 11/28/21 00:00 98.2 F 90 16 123/83 98 11/27/21 23:00 18 98 11/27/21 22:00 18 98 11/27/21 21:00 18 96 11/27/21 20:00 98.2 F 85 16 110/75 100
[2021-11-28] MEDS: IBUPROFEN 600 MG TAB PO PRN ×3 (08:26→20:00)
[2021-11-28] MEDS: PRENATAL VITAMIN 1 TAB PO SCH (08:26)
[2021-11-28] MEDS: DOCUSATE SODIUM 100 MG CAP PO SCH ×2 (08:26→20:00)
[2021-11-28] MEDS: SIMETHICONE 80 MG CHEW PO SCH ×4 (08:26→21:00)
[2021-11-28] MEDS: oxyCODONE/ACETAMINOPHEN 5mg/325mg TAB PO PRN ×3 (08:27→20:00)
[2021-11-28] MEDS: FERROUS SULFATE 325 MG TAB PO SCH (09:24)
--- NOTE | 2021-11-28 13:18 | Pharmacy Report ---
Pharmacy Glycemic Short Note 2 - Date of Service November 28, 2021 - Glycemic Short BSG Results (Last 24 hours): 11/27/21 11/27/21 11/28/21 16:13 18:34 08:11 POC Glucose 94 74 67 L* 11/28/21 11/28/21 08:12 08:50 POC Glucose 73 113 H OUTPATIENT ANTIDIABETIC REGIMEN: * Tresiba 22 units SQ daily + Lispro with meals (up to 50 units/day) * Of note, patient was while utilizing this regimen * A1c = 6.6% ASSESSMENT: * Nia is a 36 yo T1DM s/p on 11/27 * Her insulin regimen was significantly decreased post delivery due to decreased stress from completion of . Ordered doses are similar to what see was using pre-. * Despite receiving half of her previous basal dose, her fasting was below goal (67, 73 mg/dL). Will further decrease today. * Unable to determine if Novolog parameters are appropriate per patient has been consuming little to no carbs thus far. PLAN FOR INPATIENT GLYCEMIC CONTROL: * Hold outpatient oral diabetes medications * Basal insulin * Tresiba 8-9 units SQ HS (using patients own med) * 8 units for BSG 180 mg/dL or less, 9 units for BSG > 180 mg/dL * Bolus insulin * NovoLog per scale ACHS or Q6hrs while NPO * Goal Range: Low 110 mg/dL - High 140 mg/dL * Correction Factor: 50 mg/dL/unit * Nutritional / Prandial insulin per carb ratio of 1 unit per 20 grams CHO consumed
[2021-11-28] MEDS ORDERED: bisacodyL 5 MG TABEC PO SCH (20:00)
[2021-11-28] MEDS: INSULIN DEGLUDEC 200 UNITS/ML PEN SQ SCH (21:36)
[2021-11-29] MEDS: oxyCODONE/ACETAMINOPHEN 5mg/325mg TAB PO PRN ×3 (05:10→20:08)
[2021-11-29] MEDS: IBUPROFEN 600 MG TAB PO PRN ×3 (05:10→20:08)
[2021-11-29 06:38] LABS: Hemoglobin 6.6 g/dL (12.0-16.0)
[2021-11-29] MEDS: LEVOTHYROXINE SODIUM 100 MCG TABLET PO SCH (07:07)
[2021-11-29] MEDS ORDERED: SODIUM CHLORIDE 0.9% 250 ML IV PRN ×2 (07:13→07:14)
--- NOTE | 2021-11-29 07:27 | Obstetrical Progress Note ---
Date of Service November 29, 2021 Assessment & Plan (1) Encounter for care and examination after delivery: Plan: Patient is a 36-year-old now female who delivered via , postop day 2. complicated by type 1 diabetes. -Continue routine care, likely discharge tomorrow -GBS negative, O+, antibody negative, rubella immune -Hemoglobin 6.6, see anemia below for plan -Continue insulin at current regimen for type 1 diabetes, appreciate pharmacy recommendations -Encouraged breast-feeding when able -Encouraged ambulation - 6-week follow-up with Dr. Foster (2) Acute blood loss anemia: Plan: -Hemoglobin at 6.6 today with symptoms -Blood loss appropriate with surgery patient experience, however, will transfuse 1 unit and recheck with an H&H in the afternoon -Continue to monitor Admission and Anticipated Discharge Date Admission Date: November 27, 2021 Supervising Physician Co-Signing Physician Notes Resident Physician Supervision Note: I was present with Dr. Villeda during the history and exam. I discussed the case with the resident and agree with the findings and plan as documented in the note. Any exceptions or clarifications are listed here: POD2 s/p rLTCS/BTL, doing well. Overall ambulating w/o lightheadedness/dizziness other than slightly lightheaded after showering yesterday. H/H 6.6, do not think active bleeding as distension has improved and is asymptomatic other than after shower. Will transfuse 1u today, plan for d/c home tomorrow. BG doing well Documented By: Deborah Foster MD Subjective Patient is a 36-year-old now female who delivered via , postop day 2. complicated by type 1 diabetes. Patient overall doing well. Patient did experience episodes of lightheadedness yesterday after shower. Otherwise has overall been doing well. Ambulating around the room without difficulty. Urinating and passing gas. No bowel movement as of yet. Lochia moderate and improving. Patient unable to attempt breast-feeding at this time as patient's baby was transferred to [facility]. Pain controlled at this time. Patient denies fever, chills, chest pain, shortness of breath, UTI symptoms, or headache. Patient okay with being sent home today would prefer to stay till tomorrow. Otherwise no complaints at this time. Review of Systems Review of Systems: All systems reviewed & are unremarkable except as noted in HPI & below Physical Exam Constitutional: WD/WN, vitals as above Eyes: + anicteric sclerae Neck: trachea midline, no thyromegaly Respiratory: normal respiratory effort, lungs clear to auscultation Cardiovascular: RRR, no murmur, no edema Gastrointestinal (Abdomen): normal bowel sounds, soft, nontender, no hepatosplenomegaly Musculoskeletal: Head/Neck/Chest: normocephalic and head atraumatic Skin: no rashes, warm and dry There is a dry, healing surgical incision at the inferior abdomen. No surrounding erythema or discharge. Neurologic: moves all extremities Psychiatric: A+Ox3, euthymic affect Genitourinary: Uterus fundus palpated at the level of the umbilicus, firm. Results & Data ([facility]) Vital Signs (Past 12 Hours) Vital Signs Temp Pulse Resp BP 11/29/21 04:30 37 C 75 16 114/77 11/29/21 00:00 36.7 C 85 16 105/67 11/28/21 20:00 36.9 C 82 16 116/76
[2021-11-29] MEDS: SIMETHICONE 80 MG CHEW PO SCH ×4 (09:09→21:05)
[2021-11-29] MEDS: PRENATAL VITAMIN 1 TAB PO SCH (09:10)
[2021-11-29] MEDS: DOCUSATE SODIUM 100 MG CAP PO SCH ×2 (09:10→21:05)
[2021-11-29] MEDS: FERROUS SULFATE 325 MG TAB PO SCH (09:10)
--- NOTE | 2021-11-29 10:01 | Pharmacy Report ---
Pharmacy Glycemic Short Note 2 - Date of Service November 29, 2021 - Glycemic Short OUTPATIENT ANTIDIABETIC REGIMEN: * Tresiba 22 units SQ daily + Lispro with meals (up to 50 units/day) * Of note, patient was while utilizing this regimen * A1c = 6.6% ASSESSMENT: 11/29/21: * Patient received total 11 units of insulin yesterday; 9 units basal and 2 units bolus. * Fasting BSG today was low - 57 mg/dl- as reported by the patient. She has been using her own glucometer, therefore this is not reported in [facility]. * Spoke to patient's nurse today about trying to use hospital glucometer. Nurse will check with patient about this so that BSGs are reported in the EMR. * Patient is using her own basal Tresiba insulin and her own Humalog pen for bolus doses. * Since she was hypoglycemic this AM, further decreased her basal insulin dose ordered for HS. Background 11/28/21: * Nia is a 36 yo T1DM s/p on 11/27 * Her insulin regimen was significantly decreased post delivery due to decreased stress from completion of . Ordered doses are similar to what see was using pre-. * Despite receiving half of her previous basal dose, her fasting was below goal (67, 73 mg/dL). Will further decrease today. * Unable to determine if Novolog parameters are appropriate per patient has been consuming little to no carbs thus far. PLAN FOR INPATIENT GLYCEMIC CONTROL: * Basal insulin * Tresiba 4-6 units SQ HS (using patients own med) * 4 units for BSG 180 mg/dL or less, 6 units for BSG > 180 mg/dL * Bolus insulin * HumaLog (using patient's own med) per scale ACHS or Q6hrs while NPO * Goal Range: Low 110 mg/dL - High 140 mg/dL * Correction Factor: 50 mg/dL/unit * Nutritional / Prandial insulin per carb ratio of 1 unit per 20 grams CHO consumed
[2021-11-29] MEDS: INSULIN LISPRO 100 UNITS/ML PEN SC SCH ×3 (12:28→21:42)
[2021-11-29] MEDS ORDERED: bisacodyL 10 MG SUPP PR PRN (13:36)
[2021-11-29 15:02] LABS: Hematocrit (blood only) 23.1 % (37-47); Hemoglobin 7.7 g/dL (12.0-16.0)
[2021-11-29] MEDS: INSULIN DEGLUDEC 200 UNITS/ML PEN SQ SCH (21:40)
--- NOTE | 2021-11-30 05:23 | Obstetrical Progress Note ---
Date of Service November 30, 2021 Assessment & Plan (1) Encounter for care and examination after delivery: Plan: Patient is a 36-year-old now female who delivered via , postop day 2. complicated by type 1 diabetes. -Continue routine care, discharge today, discharge instructions reviewed with patient -GBS negative, O+, antibody negative, rubella immune -Pain controlled with Percocet and ibuprofen, attending will send Percocet to pharmacy for home use -Hemoglobin improved to 7.7. -Return to home diabetic insulin regimen for type 1 diabetes -Encouraged breast-feeding when able -Encouraged ambulation - 6-week follow-up with Dr. Foster (2) Acute blood loss anemia: Plan: -Hemoglobin improved to 7.7 after being transfused 1 unit yesterday. -Would like patient to shower before she goes home to make sure that she does not experience presyncope while showering Admission and Anticipated Discharge Date Admission Date: November 27, 2021 Supervising Physician Co-Signing Physician Notes Resident Physician Supervision Note: I interviewed and examined the patient. Discussed with Dr. Villeda and agree with findings and plan as documented in the note. Any exceptions or clarifications are listed here: POD#3 and ready for D/C home today. Documented By: Dasia Camilo MD, FACOG Subjective Patient is a 36-year-old now female who delivered via , postop day 3. complicated by type 1 diabetes. Patient overall doing well. Patient did experience episodes of lightheadedness after shower with a hemoglobin of 6.6. Because of this, patient have 1 unit transfused and her hemoglobin salvador up to 7.7. Patient has otherwise not been experiencing any lightheadedness, dizziness, or presyncope. Otherwise has overall been doing well. Ambulating around the room without difficulty. Urinating and passing gas. No bowel movement as of yet. Lochia moderate and improving. Patient unable to attempt breast-feeding at this time as patient's baby was transferred to [facility]. Pain controlled at this time. Patient denies fever, chills, chest pain, shortness of breath, UTI symptoms, or headache. Patient would like to be discharged home today. Otherwise no complaints at this time. Review of Systems Review of Systems: All systems reviewed & are unremarkable except as noted in HPI & below Physical Exam Constitutional: WD/WN, vitals as above Eyes: + anicteric sclerae Neck: trachea midline, no thyromegaly Respiratory: normal respiratory effort, lungs clear to auscultation Cardiovascular: RRR, no murmur, no edema Gastrointestinal (Abdomen): normal bowel sounds, soft, nontender, no hepatosplenomegaly Musculoskeletal: Head/Neck/Chest: normocephalic and head atraumatic Skin: no rashes, warm and dry Neurologic: moves all extremities Psychiatric: A+Ox3, euthymic affect Genitourinary: Uterine fundus palpated at the level of the umbilicus, firm Results & Data ([facility]) Vital Signs (Past 12 Hours) Vital Signs Temp Pulse Resp BP Pulse Ox 11/29/21 23:20 36.7 C 72 16 132/80 97 11/29/21 19:55 36.9 C 77 18 152/94 H 99
[2021-11-30] MEDS: LEVOTHYROXINE SODIUM 100 MCG TABLET PO SCH (06:13)
[2021-11-30] MEDS: oxyCODONE/ACETAMINOPHEN 5mg/325mg TAB PO PRN (06:13)
[2021-11-30] MEDS: IBUPROFEN 600 MG TAB PO PRN (06:14)
[2021-11-30] MEDS: FERROUS SULFATE 325 MG TAB PO SCH (07:57)
[2021-11-30] MEDS: DOCUSATE SODIUM 100 MG CAP PO SCH (07:57)
[2021-11-30] MEDS: PRENATAL VITAMIN 1 TAB PO SCH (07:57)
[2021-11-30] MEDS: SIMETHICONE 80 MG CHEW PO SCH (07:57)
[2021-11-30] MEDS: INSULIN LISPRO 100 UNITS/ML PEN SC SCH (08:42)
--- NOTE | 2021-12-02 10:24 | Discharge Summary ---
Date of Service December 02, 2021 Admission HPI Per Admitting Provider 36 y/o at 37w6d who presents w/ c/o LOF and irreg ctx. Was seen for IVANIA yesterday, after the visit had increased discharge but noted increasing watery fluid beginning last evening that has continued into this morning. Denies recent intercourse. 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 Hx: G1 2019 primary CS for failed vacuum G2 current q28-30d cycles denies hx STIs 10/2018 neg cyto Admission Exam (Per Admitting) Genitourinary OB Exam Abdomen: + vertex Manual OB Exam: + cervical dilation (1.5), + cervical effacement + 50% and + station + -2 OB Exam Monitor Tracing: + external FHT monitor used (irreg ctx), + external uterine monitor used and + category I (150/mod/+accel/-decel) Discharge Data Consultations 11/27/21 10:54 Consult Anesthesiology Stat Procedures Performed Operation Date: 11/27/21 11:30 Actual Procedures p Repeat Section and tubal ligation in LD for SROM at 37+6/7 weeks gestation, under services of Dr Foster.(Not Applicable) - Deborah Foster MD Hospital Course (1) Previous section complicating : (2) Encounter for care and examination after delivery: (3) Acute blood loss anemia: 36 y/o at 37w6d presented with spontaneous rupture of membranes. She was planned for repeat and bilateral tubal ligation and desired to proceed with this procedure after consents were reviewed and signed. See operative report for details. There was large scarring encountered during the surgery which caused increased EBL. Diabetes management assisted by pharmacy given T1DM, BG remained appropriate. Postoperative course was complicated by this acute blood loss anemia and so she received 1u pRBC on POD2 and had appropriate rise in H/H, tolerated it well. She was then stable for discharge home on POD3 Coding Level of Care Code None Diagnoses Previous section complicating O34.219 Encounter for care and examination after delivery Z39.2 Acute blood loss anemia D62
== END 2021-11-30 11:00 | disposition home or self-care (01) | DRG 783 ==
LOC: OPB 09:38 → 4S1 09:39 → 4E2 17:01